=== PATIENT | female | born 1960 | race Hispanic/Latino ===

== ENCOUNTER 2017-09-28 18:38 | Emergency (ER) | payer OTHER | END 2017-09-28 20:10 | disposition home or self-care (01) | LOC: ERS 18:38 | DX: L03.114 Cellulitis of left upper limb (principal); E78.5 Hyperlipidemia, unspecified; E11.9 Type 2 diabetes mellitus without complications; E03.9 Hypothyroidism, unspecified; I10 Essential (primary) hypertension; F32.9 Major depressive disorder, single episode, unspecified | CPT/HCPCS: 99283 ==

== ENCOUNTER 2017-10-01 17:15 | Inpatient (IN) | payer OTHER ==
[~2017-10-01 17:15] MED LIST: ISOVUE-370 76%-LOCM 1 ML ONE
[2017-10-01] MEDS ORDERED: Adacel (T-DAP) 0.5 ML VIAL ONE (19:04)
[2017-10-01] MEDS ORDERED: Morphine 4 MG/ML VIAL ONE ×2 (19:04→22:48)
[2017-10-01 19:14] LABS: #Eosinphils 0.1 thou/uL (0.0-0.7); #Lymphocytes 2.2 thou/uL (1.20-3.40); #Monocytes 1.4 thou/uL (0.11-0.59); %Eosinophils 0.5 % (0.0-10.0); %Lymphocytes 11.6 % (21.0-51.0); %Monocytes 7.5 % (0.0-10.0); %Neutrophils 80.3 % (42.0-75.0); Hemoglobin 10.8 g/dL (12.0-16.0); Mean Corpuscular HGB CONC 35.4 g/dL (32.0-36.0); Mean Corpuscular Volume 90.4 fl (81.0-99.0); Mean Platelet Volume 8.7 fL (7.4-10.4); Platelet Count 287 thou/uL (130-400); RBC Distribution Width 10.8 % (11.5-14.5); Red Blood Cell (RBC) Count 3.37 mill/uL (4.20-5.40); White Blood Cell (WBC) Count 18.7 thou/uL (4.8-10.8)
[2017-10-01] MEDS ORDERED: Vancomycin HCl 1.5 GM in Sodium Chloride 0.9% 250 ML 300 ML IVPB SCH (19:15)
[2017-10-01] MEDS ORDERED: Cefepime 2 GM, Syringe 2.5 ML in Sodium Chloride 0.9% 10 ML SLOW IVP SCH (19:15)
[2017-10-01 19:35] LABS: Anion Gap 17 mmol/L (10-20); BUN (Urea Nitrogen) 15 mg/dL (9.8-20.1); Calc. Creatinine Clearance 0 mL/min (70-130); Calcium 9.5 mg/dL (7.8-10.44); Carbon Dioxide 20 mmol/L (22-29); Chloride 96 mmol/L (98-107); Estimated GFR-MDRD 40; Glucose 504 mg/dL (70-105); Potassium 4.6 mmol/L (3.5-5.1); Sodium 128 mmol/L (136-145)
--- NOTE | 2017-10-01 20:53 | CT ---
CT OF THE LEFT UPPER EXTREMITY WITH CONTRAST: 10/01/17 COMPARISON: None. HISTORY: Cellulitis. Patient administered insulin to her arm. To evaluate for deep abscess. Pain in the left a rm. TECHNIQUE: Multiple contiguous axial images were obtained in a CT of the left upper extremity with contrast. Sag ittal and coronal reformats were performed. FINDINGS: There is stranding in the subcutaneous fat of the outer aspect of the arm. No focal well circumscribe d fluid collection is seen. The stranding may extend down to the triceps muscle without focal fluid c ollection within t he triceps muscle. No air is seen within the soft tissues. No bony abnormality is seen. There may be small nonobstructing calcifications in the left kidney. IMPRESSION: 1. There are stranding changes in the arm without focal abscess identified. 2. Possible nonobstructing left renal calcifications. POS: SANTOS
[2017-10-01] MEDS ORDERED: Lidocaine 1% w/Epinephrine 1:100K 20 ML VIAL ONE (20:55)
[2017-10-01 21:07] LABS: Base Excess-Venous -1.5 mmol/L (0 (+/- 2.5)); Bicarbonate (HCO3v) 22.4 mmol/L (1.0-85.0); CO2 Tension (PvCO2) 34.6 mmHg (41.0-51.0); Calcium, Ionized 0.99 mmol/L (1.12-1.32); O2 Tension (PvO2) 38.4 mmHg (35.0-45.0); Potassium 4.4 mmol/L (3.4-4.7); T. Carbon Dioxide 23.5 mmol/L (1.0-85.0); vO2 Saturation-calc 74.4 % (94-98)
--- NOTE | 2017-10-01 22:55 | PDOC.FPRHP ---
- History of Present Illness Chief Complaint: Left arm pain secondary to infection History of Present Illness: This is a 57 yo F w/hx of DM2, HTN, HLD, hypothyroid here with complaint of R upper arm pain secondary to a previous cellulitis diagnosis. She states that she began to have pain and redness apprx 1 week ago. She was put on Bactrim and Keflex after being diagnosed w/cellulitis on 09/28. Yesterday night, she noticed a drainage from the center of the affected area and decided that the new drainage and lack of improvement warranted another evaluation. She denies fever/ chills, n/v, or any other new symptoms. Her major complaint is continued arm pain. - Allergies/Adverse Reactions Allergies Allergy/AdvReac Type Severity Reaction Status Date / Time No Known Drug Allergies Allergy Verified 11/10/15 13:12 - Home Medications Medication Instructions Recorded Confirmed Type Aspirin [Aspir-Low] 1 tab PO DAILY 10/01/17 10/02/17 History Atorvastatin Calcium [Lipitor] 40 mg PO DAILY 10/01/17 10/02/17 History Cephalexin [Keflex] 1 tab PO Q8HR 10/01/17 10/02/17 History Citalopram [CeleXA] 1 tab PO DAILY 10/01/17 10/02/17 History Insulin Glargine,Hum.Rec.Anlog 30 units SQ DAILY 10/01/17 10/02/17 History [Lantus] Levothyroxine Sodium 2 tab PO DAILY 10/01/17 10/02/17 History Sulfamethoxazole/Trimethoprim 1 tab PO BID 10/01/17 10/02/17 History [Bactrim DS] metFORMIN HCl [Metformin HCl] 1 tab PO BID 10/01/17 10/02/17 History traMADol HCl [Tramadol HCl] 1 tab PO Q6HR 10/01/17 10/02/17 History - History PMHx: DM2 HTN HLD Hypothyroid GERD PSHx: Hysterectomy hemorrhoidectomy FHx: unk Social: Denies etoh, tobacco, drug use - Review of Systems General: denies: fever/chills, weight/appetite/sleep changes Eyes: denies: vision changes ENT: denies: nasal congestion Respiratory: denies: cough, congestion, shortness of breath Cardiovascular: denies: chest pain, palpitation, edema Gastrointestinal: denies: nausea, vomiting, diarrhea, abdominal pain Genitourinary: reports: polyuria Skin: reports: rashes, lesions (Complains of draining lesion in the center of an area of redness on posterior upper L arm) Musculoskeletal: reports: pain, tenderness (TTP over area of erythema), swelling Neurological: denies: numbness Psychological: denies: anxiety, depression - Vital signs BP: 130/83 HR: 82 RR: 20 Tmax: 98.8 Pox: 99% on RA Wt: 115 kg - Physical Exam Constitutional: NAD, awake, alert and oriented HEENT: normocephalic and atraumatic, PERRLA, EOMI, no scleral icterus Neck: supple, FROM, trachea midline Chest: no-tender to palpation Heart: RRR, normal S1/S2 Lungs: CTAB, no respiratory distress Abdomen: soft, non-tender, bowel sounds present Musculoskeletal: normal structure, normal tone Neurological: no focal deficit, CN II-XII intact -Skin: Area of erythema on posterior upper L arm outside of the previous marked area with central draining lesion. Heme/Lymphatic: no unusual bruising or bleeding Psychiatric: normal mood and affect, good judgment and insight FMR H&P: Results - Labs Result Diagrams: 10/02/17 01:31 10/02/17 01:32 Lab results: WBC 18.7 thou/uL (4.8-10.8) H 10/01/17 19:03 Hgb 10.8 g/dL (12.0-16.0) L 10/01/17 19:03 Hct 30.5 % (36.0-47.0) L 10/01/17 19:03 MCV 90.4 fl (81.0-99.0) 10/01/17 19:03 Plt Count 287 thou/uL (130-400) 10/01/17 19:03 Neutrophils % 80.3 % (42.0-75.0) H 10/01/17 19:03 VBG pCO2 34.6 mmHg (41.0-51.0) L 10/01/17 21:05 VBG pO2 38.4 mmHg (35.0-45.0) 10/01/17 21:05 Sodium 128 mmol/L (136-145) L 10/01/17 19:03 Potassium 4.6 mmol/L (3.5-5.1) 10/01/17 19:03 Chloride 96 mmol/L (98-107) L 10/01/17 19:03 Carbon Dioxide 20 mmol/L (22-29) L 10/01/17 19:03 BUN 15 mg/dL (9.8-20.1) 10/01/17 19:03 Creatinine 1.37 mg/dL (0.6-1.1) H 10/01/17 19:03 Glucose 504 mg/dL (70-105) H 10/01/17 19:03 Calcium 9.5 mg/dL (7.8-10.44) 10/01/17 19:03 - Radiology Interpretation Other Status: report reviewed by me (CT L arm - stranding without focal abscess) FMR H&P: A/P - Problem List (1) Cellulitis Current Visit: Yes Status: Acute Priority: High Code(s): L03.90 - CELLULITIS, UNSPECIFIED Qualifiers: Site of cellulitis: extremity Site of cellulitis of extremity: upper extremity Laterality: left Qualified Code(s): L03.114 - Cellulitis of left upper limb (2) Normocytic anemia Current Visit: Yes Status: Chronic Priority: Low Code(s): D64.9 - ANEMIA, UNSPECIFIED (3) DURAN (acute kidney injury) Current Visit: Yes Status: Acute Priority: Medium Code(s): N17.9 - ACUTE KIDNEY FAILURE, UNSPECIFIED (4) Hyponatremia Current Visit: Yes Status: Acute Priority: Low Code(s): E87.1 - HYPO- OSMOLALITY AND HYPONATREMIA (5) Diabetes mellitus type 2 Current Visit: Yes Status: Chronic Priority: Medium Code(s): E11.9 - TYPE 2 DIABETES MELLITUS WITHOUT COMPLICATIONS (6) Hyperlipidemia Current Visit: Yes Status: Chronic Priority: Low Code(s): E78.5 - HYPERLIPIDEMIA, UNSPECIFIED (7) Hypertension Current Visit: Yes Status: Chronic Priority: Medium Code(s): I10 - ESSENTIAL (PRIMARY) HYPERTENSION (8) Hypothyroidism Current Visit: Yes Status: Chronic Priority: Medium Code(s): E03.9 - HYPOTHYROIDISM, UNSPECIFIED - Plan Cellulitis - admit to medicine - continue Vanc and cefepime - wound cultures pending, adjust abx when results are available - repeat CBC/BMP in am - I&D to be performed in ED, consult wound care DURAN - likely secondary to dehydration from hyperglycemia - IVF, recheck BMP in am - work to control glucose with low carb diet and restart home meds Uncontrolled DM - restart home basal, add SSI. Pt should likely be on scheduled short acting. Will work to identify total insulin need and adjust home meds as indicated. - hyperglycemia likely contributing to outpt abx failure - low carb diet HTN - restart home meds, controlled Hypothyroid - restart home meds - TSH Anemia - stable, asymptomatic - Normal MCV. Order folate and iron studies to eval for mixed anemia GERD - continue home protonix HLD - Continue home statin Mild dehydration - likely source of DURAN. IVF as above PPx - lovenox and scd. Code full Diet low carb Dispo: Pt is stable. Will require a few days of IV abx until cultures result, then change abx as indicated. Likely LOS 48-72 hours FMR H&P: Upper Level - Pertinent history 57 y/o F w/ PMHx of uncontrolled IDDM (last A1c 09/04 >14), HTN, and HLD presents for evaluation of worsening right arm pain/swelling/redness. Pt was seen in the ER on 09/28 and dx w/ cellulitis. She was sent home w/ Bactrim and Keflex at this time which she reports taking. Margin of erythema was marked w/ a pen at this time and pt was instructed to return to the ER if the redness grew past the marked line. Pt reportedly first began having sxs approx. 1 week ago s/p injecting herself w/ her insulin. She denies any improvement s/p initiation of PO abx. States she developed a blister yesterday which popped w/ purulent fluid draining out of it. She states that the redness and pain grew past the margins of the chinik upon waking this AM prompting her ER visit tonight. Denies any F/C/N/V. Pt's BG reportedly usually running in the 300's w/ regard to her DM. - Pertinent findings CT-UE: No evidence of abscess WBC- 18.7 w/ 80% neutrophils BUN- 15 Cr - 1.37 (baseline 0.87) BP: 138/83 Pulse: 82 RR: 20 Tmax: 98.8 DegF O2Sat: 99% on RA Gen: Obese, NAD HEENT: MMM, PERRLA, EOMI Cards: RRR, no murmur Pulm: CTA-BL, no wheezes GI: soft, NTTP, BSx4 Ext: Moves all 4 equally Neuro; CN 2-12 intact b/l, no focal deficits Skin: 6x6 cm area of induration and erythema w/ central ulceration and active sero-purulent drainage noted on lateral aspect of the right upper extremity just prox. to the elbow. Noted to be extending past visibly marked margin from . TTP. No palpable fluctuance. - Plan Date/Time: 10/01/17 0829 Amarilis Rose. Pop Lazo MD, have evaluated this patient and agree with findings/plan as outlined by web design intern resident. Pertinent changes/additions are listed here. 57 y/o F w/: 1. Cellulitis w/ failed outpatient treatment - Leukocytosis in the setting of acute infection w/o evidence of sepsis - Will martinez culture if patient becomes febrile - WCx obtained in ER, pending micro/sensitivities - Will cont. pt on vanc and cefepime started in the ER and narrow coverage pending Cx - IVF LR @ 175 mL/Hr w/ Strict I/O's - Consult Wound Care 2. DURAN - <20 ratio, likely w/ some CKD in the setting of uncontrolled DM - Will give IVF and cont. to monitor w/ daily BMPs - Last cr 0.87 from approx. 1 year ago 3. Moderate dehydration - Pt w/ significantly elevated BG level and BMP suggestive of dehydration - Will give IVF w/ PO intake and monitor w/ strict I/O's 4. Uncontrolled IDDM - Pt taking 30U of levemir BID - Will cont. this regimen and place on moderate SSI w/ adjustments to long acting pending SSI usage - Will attempt to maintain relatively strict glycemic control in the setting of infection as long as patient remians asymptomatic - A1c in clinic from last month >14.0 on insulin and metformin - CC diet. Diabetes education - This will need to be continued in the outpatient setting 5. HTN - Will cont. w/ home BP regimen w/ PRN's as needed 6. HLD - Will cont. w/ statin medication 7. Hypothyroidism - Check TSH - Cont. w/ home medication w/ adjustments as necessary 8. GERD - Cont. w/ protonix - Pt would likely benefit from further work-up for this w/ EGD in the outpatient setting 9. Normocytic anemia - Will check B12 and tagged RBC folate along w/ iron studies to evaluate - Last Hgb 13 from review of records - Possibility of dual deficiency and patient at high risk for B12 deficiency in the setting of diabetes and iron deficiency being a female DVT PPx: Lovenox GI PPx: None Activity: Ad zenon Diet: CC/HH Eval PT/OT Code status: Full Code Attending Addendum - Attending Addendum Date/Time: 10/02/17 [id number] I personally evaluated the patient and discussed the management with Dr. Clarke. I agree with the History, Examination, Assessment and Plan documented above with any addition or exceptions noted below. Her Left arm is the involved side. When corrected for hyperglycemia her serum sodium is normal. Change hyponatremia to Pseudohyponatremia. Mrs. Alegria is a 57 y/o Nepali speaking with a PMHx of DM2, HTN, HLD, hypothyroidism who presented to the E.D. with a complaint of L upper arm pain secondary to previously diagnosed cellulitis for one week and treated with Bactrim and Keflex on 09/28. She noticed a drainage from the center of the affected area and decided that the with lack of improvement she warranted repeat evaluation. She denied fever/chills, n/v, or any other new symptoms. V/S: Tmax 98.3, P72, R16, SaO2 97% RA, 121/72. Wt 114.8 Kg, BMI 42.2. Alert obese LAF in NAD. Heent: Wnl Neck: supple no adenopathy Lungs: CTA Cor: RRR, no murmur Abd: soft, protruberant, no tenderness, masses or organomegaly. Ext: Tender indurated area of Left lateral posterior upper arm est. 12 cm in diameter post I&D in E.D. with gauze packing being removed/changed by wound care nurse draining yellow pus. Surrounding area of erythema has regressed from skin marking previously placed. Otherwise No C/E/C/P. A: Abscess with Cellulitis of left upper arm post I&D, Improved DM2, HTN, HLD, Pseudohyponatremia, Hypothyroidism. P: Continue Vanc and Cefiipime. Await C&S for antibiotic sensitivity and coverage change. Tramadol for pain, Start Morphine IV prior to wound care, Continue sliding scale insulin and metformin. Scott
[2017-10-01] MEDS ORDERED: Dextrose 50% Abboject 50 ML SYRINGE SLOW IVP PRN (22:57)
[2017-10-01] MEDS ORDERED: HumaLOG 300 UNITS/3 ML VIAL SC PRN (22:57)
[2017-10-01] MEDS ORDERED: Dextrose 5% in Water 1,000 ML IV PRN (22:57)
[2017-10-01] MEDS: Sodium Chloride 0.9% 1,000 ML IV SCH (23:34)
[2017-10-01 23:45] VITALS: BMI 42.1
[2017-10-02 01:51] LABS: Reticulocyte Count 1.6 % (0.5-1.5)
[2017-10-02 02:06] LABS: Band 1 % (5-11); Eosinophils 3 % (0-10); Hemoglobin 10.8 g/dL (12.0-16.0); Lymphocytes 13 % (21-51); MDiff Complete? YES; Mean Corpuscular HGB CONC 35.1 g/dL (32.0-36.0); Mean Corpuscular Hemoglobin 31.6 pg (27.0-31.0); Mean Corpuscular Volume 90.1 fl (81.0-99.0); Mean Platelet Volume 8.6 fL (7.4-10.4); Monocytes 10 % (0-10); Neutrophil 73 % (42-75); PLT Morphology Comment Appears Adequate; Platelet Count 258 thou/uL (130-400); RBC Distribution Width 10.8 % (11.5-14.5); Red Blood Cell (RBC) Count 3.41 mill/uL (4.20-5.40)
[2017-10-02 02:07] LABS: Iron 21 ug/dL (50-170); Iron Binding Capacity, Total 181 mcg/dL (265-497)
[2017-10-02 02:16] LABS: Ferritin 407.11 ng/mL (10-291); Thyroid Stimulating Hormone 5.7449 uIU/mL (0.35-4.94)
[2017-10-02 02:22] LABS: Anion Gap 8 mmol/L (10-20); BUN (Urea Nitrogen) 14 mg/dL (9.8-20.1); Calc. Creatinine Clearance 105 mL/min (70-130); Calcium 8.6 mg/dL (7.8-10.44); Carbon Dioxide 25 mmol/L (22-29); Chloride 101 mmol/L (98-107); Estimated GFR-MDRD 53; Glucose 389 mg/dL (70-105); Potassium 3.9 mmol/L (3.5-5.1); Sodium 130 mmol/L (136-145)
[2017-10-02] MEDS: Sodium Chloride 0.9% 1,000 ML IV SCH ×4 (05:02→22:06)
[2017-10-02] MEDS: traMADol HCl 50 MG TAB PO SCH ×3 (05:47→17:29)
[2017-10-02] MEDS: HumaLOG 300 UNITS/3 ML VIAL SC PRN ×2 (05:48→11:56)
--- NOTE | 2017-10-02 06:34 | PDOC.FM ---
- Subjective Subjective: Patient doing well this AM. No significant overnight events. Pain well controlled with current pain medication regimen. Patient has no concerns. - Objective MAR Reviewed: Yes Vital Signs & Weight: Vital Signs (12 hours) Temp Pulse Resp BP BP Pulse Ox 10/02/17 03:45 98.3 F 75 12 122/68 94 L 10/02/17 00:17 97.7 F 85 18 98 10/01/17 23:45 97.7 F 85 18 165/95 H 98 Weight Weight 114.895 kg I&O: 09/30/17 10/01/17 10/02/17 06:59 06:59 06:59 Intake Total 1850 Balance 1850 Result Diagrams: 10/02/17 01:31 10/02/17 01:32 EKG Reviewed by me: No Radiology Reviewed by me: No <Loly Brian - Last Filed: 10/02/17 07:40> - Objective Vital Signs & Weight: Vital Signs (12 hours) Temp Pulse Resp BP Pulse Ox 10/02/17 11:00 98.2 F 71 18 105/55 L 91 L 10/02/17 08:00 98.2 F 72 16 121/72 97 10/02/17 03:45 98.3 F 75 12 122/68 94 L Weight Weight 114.895 kg I&O: 10/01/17 10/02/17 10/03/17 06:59 06:59 06:59 Intake Total 1850 Balance 1850 Result Diagrams: 10/02/17 01:31 10/02/17 01:32 <Krunal Schwarz - Last Filed: 10/02/17 12:23> Phys Exam - Physical Examination Constitutional: NAD resting on exam HEENT: moist MMs Neck: supple Respiratory: clear to auscultation bilateral Cardiovascular: RRR, no significant murmur Gastrointestinal: soft, non-tender, positive bowel sounds trace edema Neurological: non-focal, moves all 4 limbs Deviation from normal: Left posteior/lateral upper extremity wound currently covered. -: Drainage through current bandage. Area of cellulitis regressing. <Loly Brian - Last Filed: 10/02/17 07:40> Dx/Plan (1) Cellulitis Code(s): L03.90 - CELLULITIS, UNSPECIFIED Status: Acute QualifierTitle: Site of cellulitis: extremity Site of cellulitis of extremity: upper extremity Laterality: left Qualified Code(s): L03.114 - Cellulitis of left upper limb (2) Diabetes mellitus type 2 Code(s): E11.9 - TYPE 2 DIABETES MELLITUS WITHOUT COMPLICATIONS Status: Chronic (3) Hyperlipidemia Code(s): E78.5 - HYPERLIPIDEMIA, UNSPECIFIED Status: Chronic (4) Hypertension Code(s): I10 - ESSENTIAL (PRIMARY) HYPERTENSION Status: Chronic (5) Hypothyroidism Code(s): E03.9 - HYPOTHYROIDISM, UNSPECIFIED Status: Chronic (6) Normocytic anemia Code(s): D64.9 - ANEMIA, UNSPECIFIED Status: Chronic - Plan Plan: 1. Cellulitis w/ failed outpatient treatment - Leukocytosis in the setting of acute infection w/o evidence of sepsis; downtrending this AM - Will martinez culture if patient becomes febrile - WCx obtained in ER, pending micro/sensitivities - Will cont. pt on vanc and cefepime started in the ER and narrow coverage pending Cx - IVF LR @ 150 mL/Hr w/ Strict I/O's - Consult Wound Care - Failed outpatient treatment 2. DURAN, resolved - <20 ratio, likely w/ some CKD in the setting of uncontrolled DM - Will give IVF and cont. to monitor w/ daily BMPs - Last cr 0.87 from approx. 1 year ago 3. Moderate dehydration - Pt w/ significantly elevated BG level and BMP suggestive of dehydration - Will give IVF w/ PO intake and monitor w/ strict I/O's 4. Uncontrolled IDDM - Pt taking 30U of levemir BID - Will cont. this regimen and place on moderate SSI w/ adjustments to long acting pending SSI usage - Will attempt to maintain relatively strict glycemic control in the setting of infection as long as patient remains asymptomatic - A1c in clinic from last month >14.0 on insulin and metformin - CC diet. Diabetes education - Consider titrating insulin depending on SSI needs 5. HTN - Will cont. w/ home BP regimen w/ PRN's as needed 6. HLD - Will cont. w/ statin medication 7. Hypothyroidism - TSH mildly elevated - Free T4 pending - Cont. w/ home medication w/ adjustments as necessary 8. GERD - Cont. w/ protonix - Pt would likely benefit from further work-up for this w/ EGD in the outpatient setting 9. Normocytic anemia - B12 nml, RBC folate pending, Iron low, TIBC low, Ferritin high (likely mixed iron deficiency and ACD) - Last Hgb 13 from review of records - BM responsive - May benefit from iron supplementation DVT PPx: Lovenox GI PPx: None Activity: Ad zenon Diet: CC/HH Eval PT/OT Code status: Full Code Dispo: Will continue current treatment for cellulitis and adjust antibiotic regimen depending on sensitivities. Anticipate discharge home within 24-48 hours. <Loly Brian - Last Filed: 10/02/17 07:40> (1) Cellulitis Code(s): L03.90 - CELLULITIS, UNSPECIFIED Status: Acute Qualifiers: Site of cellulitis: extremity Site of cellulitis of extremity: upper extremity Laterality: left Qualified Code(s): L03.114 - Cellulitis of left upper limb (2) Normocytic anemia Code(s): D64.9 - ANEMIA, UNSPECIFIED Status: Chronic (3) DURAN (acute kidney injury) Code(s): N17.9 - ACUTE KIDNEY FAILURE, UNSPECIFIED Status: Acute (4) Hyponatremia Code(s): E87.1 - HYPO-OSMOLALITY AND HYPONATREMIA Status: Acute (5) Diabetes mellitus type 2 Code(s): E11.9 - TYPE 2 DIABETES MELLITUS WITHOUT COMPLICATIONS Status: Chronic (6) Hyperlipidemia Code(s): E78.5 - HYPERLIPIDEMIA, UNSPECIFIED Status: Chronic (7) Hypertension Code(s): I10 - ESSENTIAL (PRIMARY) HYPERTENSION Status: Chronic (8) Hypothyroidism Code(s): E03.9 - HYPOTHYROIDISM, UNSPECIFIED Status: Chronic <Krunal Schwarz - Last Filed: 10/02/17 12:23> Attending Addendum - Attending Addendum Date/Time: 10/02/17 1221 I personally evaluated the patient and discussed the management with Dr. Brian. I agree with the History, Examination, Assessment and Plan documented above with any addition or exceptions noted below. Please see my faculty attending addendum to the H&P done by Dr. Clarke. Abcess /Cellulitis of Left Upper Arm post I&D by Emergency Dept. Per pharmacy recommendation Vancomycin dose changed to 1.25 gram IV Q 12 hr. MD Scott <Krunal Schwarz - Last Filed: 10/02/17 12:23>
[2017-10-02] MEDS ORDERED: Cefepime 2 GM in Sodium Chloride 0.9% 100 ML IVPB SCH (08:00)
[2017-10-02] MEDS: Aspirin 81 mg Enteric Coated Tablet PO SCH (08:43)
[2017-10-02] MEDS: Enoxaparin Sodium 40 MG/0.4 ML SYRINGE SC SCH (08:43)
[2017-10-02] MEDS: metFORMIN 500 MG TAB PO SCH ×2 (08:43→17:29)
[2017-10-02] MEDS: Citalopram 20 MG TAB PO SCH (08:43)
[2017-10-02] MEDS: Atorvastatin Calcium 40 MG TAB PO SCH (08:44)
[2017-10-02] MEDS: Levothyroxine Sodium 125 MCG TAB PO SCH (08:44)
[2017-10-02] MEDS: Cefepime 2 GM, Syringe 2.5 ML in Sodium Chloride 0.9% 10 ML SLOW IVP SCH ×2 (08:44→20:33)
[2017-10-02] MEDS: Acetaminophen 325 MG TAB PO PRN (08:48)
[2017-10-02] MEDS ORDERED: Insulin Detemir 100 UNITS/ML 30 UNITS in Admixture Fee 1 EACH SC SCH ×2 (09:00→21:00)
[2017-10-02] MEDS ORDERED: Vancomycin HCl 1.75 GM in Sodium Chloride 0.9% 500 ML IVPB SCH ×3 (12:08→21:00)
[2017-10-02] MEDS: Vancomycin HCl 1.25 GM in Sodium Chloride 0.9% 250 ML 250 ML IVPB SCH (15:02)
[2017-10-03] MEDS: traMADol HCl 50 MG TAB PO SCH ×2 (00:46→05:37)
[2017-10-03] MEDS: Vancomycin HCl 1.25 GM in Sodium Chloride 0.9% 250 ML 250 ML IVPB SCH (00:54)
[2017-10-03] MEDS: Sodium Chloride 0.9% 1,000 ML IV SCH (04:13)
[2017-10-03 05:52] LABS: Anion Gap 10 mmol/L (10-20); BUN (Urea Nitrogen) 11 mg/dL (9.8-20.1); Calc. Creatinine Clearance 146 mL/min (70-130); Calcium 8.4 mg/dL (7.8-10.44); Carbon Dioxide 21 mmol/L (22-29); Chloride 108 mmol/L (98-107); Estimated GFR-MDRD 78; Glucose 107 mg/dL (70-105); Potassium 3.7 mmol/L (3.5-5.1); Sodium 135 mmol/L (136-145)
--- NOTE | 2017-10-03 06:14 | PDOC.FM ---
- Subjective Subjective: Patient doing well this AM. No significant overnight events. Patient's pain fairly well controlled. No fevers overnight. No chest pain or shortness of breath. - Objective MAR Reviewed: Yes Vital Signs & Weight: Vital Signs (12 hours) Temp Pulse Resp BP Pulse Ox 10/02/17 22:07 166/88 H 10/02/17 20:00 97.6 F 76 20 177/100 H 97 Weight Weight 114.895 kg I&O: 10/01/17 10/02/17 10/03/17 06:59 06:59 06:59 Intake Total 1850 3190 Balance 1850 3190 Result Diagrams: 10/02/17 01:31 10/03/17 04:45 EKG Reviewed by me: No Radiology Reviewed by me: Yes Phys Exam - Physical Examination Constitutional: NAD HEENT: moist MMs Neck: supple Respiratory: no wheezing Cardiovascular: RRR, no significant murmur Gastrointestinal: soft, positive bowel sounds Musculoskeletal: pulses present trace Neurological: non-focal, moves all 4 limbs Psychiatric: normal affect Deviation from normal: No surrounding cellulitis past point of current bandage on RUE. -: Abscess currently covered. Drainage evident through bandage. Dx/Plan (1) Abscess Code(s): L02.91 - CUTANEOUS ABSCESS, UNSPECIFIED Status: Acute (2) Cellulitis Code(s): L03.90 - CELLULITIS, UNSPECIFIED Status: Acute Qualifiers: Site of cellulitis: extremity Site of cellulitis of extremity: upper extremity Laterality: left Qualified Code(s): L03.114 - Cellulitis of left upper limb (3) Diabetes mellitus type 2 Code(s): E11.9 - TYPE 2 DIABETES MELLITUS WITHOUT COMPLICATIONS Status: Chronic (4) Hyperlipidemia Code(s): E78.5 - HYPERLIPIDEMIA, UNSPECIFIED Status: Chronic (5) Hypertension Code(s): I10 - ESSENTIAL (PRIMARY) HYPERTENSION Status: Chronic (6) Hypothyroidism Code(s): E03.9 - HYPOTHYROIDISM, UNSPECIFIED Status: Chronic (7) Normocytic anemia Code(s): D64.9 - ANEMIA, UNSPECIFIED Status: Chronic - Plan Plan: 1. RUE abscess s/p I&D with surrounding cellulitis - Leukocytosis in the setting of acute infection w/o evidence of sepsis; downtrending - Will martinez culture if patient becomes febrile - WCx obtained in ER; no growth to date - May consider transitioning to oral abx and de-escalating abx as patient is clinically improving - Strict I&O's - Wound care consulted; appreciate recs - Failed outpatient treatment - Improving based on wound care photos 2. DURAN, resolved - <20 ratio, likely w/ some CKD in the setting of uncontrolled DM - Cr 0.76 this AM - Last cr 0.87 from approx. 1 year ago 3. Moderate dehydration, resolved - Pt w/ significantly elevated BG level and BMP suggestive of dehydration - d/c'd fluids this AM 4. Uncontrolled IDDM - Pt taking 30U of levemir BID - Will cont. this regimen and place on moderate SSI w/ adjustments to long acting pending SSI usage - Will attempt to maintain relatively strict glycemic control in the setting of infection as long as patient remains asymptomatic - A1c in clinic from last month >14.0 on insulin and metformin - CC diet. Diabetes education - Increase basil insulin dose; required 16 units SSI yesterday 5. HTN - Will cont. w/ home BP regimen w/ PRN's as needed 6. HLD - Will cont. w/ statin medication 7. Hypothyroidism - TSH mildly elevated - Free T4 wnl - Cont. w/ home medication 8. GERD - Cont. w/ protonix - Pt would likely benefit from further work-up for this w/ EGD in the outpatient setting 9. Normocytic anemia - B12 nml, RBC folate pending, Iron low, TIBC low, Ferritin high (likely mixed iron deficiency and ACD) - Last Hgb 13 from review of records - BM responsive - May benefit from iron supplementation DVT PPx: Lovenox GI PPx: None Activity: Ad zenon Diet: CC/HH Eval PT/OT Code status: Full Code Dispo: Will continue current treatment for cellulitis and adjust antibiotic regimen depending on sensitivities. Anticipate discharge home within 24-48 hours.
[2017-10-03] MEDS: metFORMIN 500 MG TAB PO SCH (08:05)
[2017-10-03] MEDS: Aspirin 81 mg Enteric Coated Tablet PO SCH (08:05)
[2017-10-03] MEDS: Levothyroxine Sodium 125 MCG TAB PO SCH (08:06)
[2017-10-03] MEDS: Atorvastatin Calcium 40 MG TAB PO SCH (08:07)
[2017-10-03] MEDS: Citalopram 20 MG TAB PO SCH (08:07)
[2017-10-03] MEDS: Enoxaparin Sodium 40 MG/0.4 ML SYRINGE SC SCH (08:09)
[2017-10-03 08:52] VITALS: TEMP 98
[2017-10-03] MEDS ORDERED: Insulin Detemir 100 UNITS/ML 35 UNITS in Admixture Fee 1 EACH SC SCH ×2 (09:00→21:00)
[2017-10-03] MEDS ORDERED: Lisinopril 20 MG TAB PO SCH (09:00)
[2017-10-03] MEDS: Cefepime 2 GM, Syringe 2.5 ML in Sodium Chloride 0.9% 10 ML SLOW IVP SCH (09:30)
[2017-10-03 10:18] VITALS: BP 158/87
[2017-10-03] MEDS: Acetaminophen 325 MG TAB PO PRN (10:34)
--- NOTE | 2017-10-03 12:14 | ADD-PRG ---
This is an addendum to the note of Dr. Loly Brian. Ms. Alegria was admitted with cellulitis of her left upper extremity. She is a poorly controlled ty pe 2 diabetic. The wound was I&D'd and she is much improved. She can be discharged later today for followup wound care at home. She will need to have tighter control of her diabetes in the future.
[2017-10-03] MEDS ORDERED: Clindamycin 150 MG CAP PO SCH (14:00)
[2017-10-03 18:10] LABS: Folate,Hemolysate 373.5 ng/mL (Not Estab.); Hematocrit 30.8 % (34.0-46.6); RBC Folate Test Component 1213 ng/mL (>498)
--- NOTE | 2017-10-15 22:09 | DIS-2 ---
DATE OF ADMISSION: 10/01/2017 DATE OF DISCHARGE: 10/03/2017 ADMITTING ATTENDING: Jinny Schmitt M.D. DISCHARGE ATTENDING: Narinder Recio MD RESIDENT: Loly Brian DO CONSULTS: Wound Care. PROCEDURES: Upper extremity CT, there are standing changes in the arm without focal abscess identified. Possible nonobstructing left renal calcifications. PRIMARY DIAGNOSES: 1. Abscess of the left upper extremity with surrounding cellulitis. 2. Acute kidney injury. 3. Uncontrolled diabetes mellitus type 2. SECONDARY DIAGNOSES: 1. Hypertension. 2. Hypothyroidism. 3. Normocytic anemia. 4. Gastroesophageal reflux disease. 5. Hyperlipidemia. DISCHARGE MEDICATIONS: 1. Clindamycin 300 mg oral every 6 hours for a total of 6 days. 2. Lisinopril 40 mg oral daily. 3. Atorvastatin calcium 40 mg oral daily. 4. Tramadol 50 mg tablet, 1 tablet oral every 6 hours as needed for pain. 5. Metformin 1000 mg oral twice daily. 6. Levothyroxine 250 mcg oral daily. 7. Citalopram 20 mg oral daily. 8. Aspirin 81 mg oral daily. 9. Lantus 40 units subcutaneously daily. DISCONTINUED MEDICATION: 1. Bactrim-DS 1 tablet oral twice daily was discontinued. 2. Cephalexin 1 tablet oral every 8 hours was discontinued. 3. Of note, insulin glargine was changed from 30 units subcutaneously daily to 40 units subcutaneously daily for better glucose control. HISTORY OF PRESENT ILLNESS AND HOSPITAL COURSE: This is a 57-year-old female with a history of uncontrolled diabetes mellitus type 2, hypertension, hyperlipidemia and hypothyroidism, who presents with a complaint of left upper arm pain secondary to previous cellulitis diagnosis. Pain and redness began approximately one week prior to admission. She was put on Bactrim and Keflex after being diagnosed with cellulitis on 09/28/2017, but the night prior to admission, she did notice some drainage from the center of the affected area and decided that the new drainage and lack of improvement warranted further evaluation. The patient denies any fever, chills, nausea, vomiting or new symptoms. Her major complaint is continued pain. A CT scan of the arm was performed, which did not show any abscess formation; however, an I&D was performed down in the ER and a large amount of purulent drainage was expressed. The wound was packed with iodoform gauze. The patient was started on vancomycin and cefepime in the Emergency Department. The patient remained stable throughout the course of her hospital stay. Wound Care did come and evaluate the patient on several occasions, have packing changed. The wound did improve drastically after the incision and drainage. Cultures were obtained; however, since the patient was already taking antibiotics prior to admission, cultures were sterile. The patient was taken off of vancomycin and cefepime and transitioned to oral antibiotics to include clindamycin for further treatment of left upper extremity abscess and surrounding cellulitis. She is to continue this for an additional 6 days as she has already been on vancomycin and cefepime for a total of 2 days at this point. The patient was advised to follow up closely with her primary care physician and to have the wound further evaluated as an outpatient. Wound Care did come up and teach her granddaughter how to change the packing and dress the wound. Her insulin was also adjusted during this hospitalization to account for her elevated glucose, likely contributing to abscess formation. It is speculated that the patient was trying to inject herself in the left arm with insulin, whereby she developed this abscess and cellulitis. DISPOSITION: Stable. DISCHARGE INSTRUCTIONS: 1. Location: Home. 2. Activity: As tolerated. 3. Diet: Consistent carb, heart healthy. 4. Followup: The patient to follow up with Dr. Silva, [facility] within 3 days of discharge from the hospital to have wounds further evaluated and to have packing changed as necessary. The patient was counseled thoroughly on how to manage her wound and Wound Care did come up and teach the patient and her granddaughter how to do this from home. The patient was in understanding and agreement with the plan. LUTHER
== END 2017-10-03 13:30 | disposition home or self-care (01) | DRG 603 ==
LOC: ERS 17:15 → T4-B 22:05
PROVIDERS: ADMIT Family Medicine; ATTEND Family Medicine
DX: L03.114 Cellulitis of left upper limb (principal); N17.9 Acute kidney failure, unspecified; E11.22 Type 2 diabetes mellitus with diabetic chronic kidney disease; E11.65 Type 2 diabetes mellitus with hyperglycemia; E87.1 Hypo-osmolality and hyponatremia; E78.5 Hyperlipidemia, unspecified; E03.9 Hypothyroidism, unspecified; D64.9 Anemia, unspecified; K21.9 Gastro-esophageal reflux disease without esophagitis; I12.9 Hypertensive chronic kidney disease with stage 1 through stage 4 chronic kidney disease, or unspecified chronic kidney disease; N18.9 Chronic kidney disease, unspecified; E86.0 Dehydration; E66.9 Obesity, unspecified; Z79.4 Long term (current) use of insulin; Z79.84 Long term (current) use of oral hypoglycemic drugs; Z79.899 Other long term (current) drug therapy; Z90.710 Acquired absence of both cervix and uterus
CPT/HCPCS: 10060; 36415; 36416; 80048; 82010; 82330; 82607; 82728; 82747; 82803; 83540; 83550; 84439; 84443; 85025; 85046; 85060; 87040; 87070; 87205; 90471; 90715; 96365; 96366; 96375; G8978-GP-CI; G8979-GP-CI; G8980-GP-CI; J0692; J1650; J1815; J2001; J2270; J3370; J7050

== ENCOUNTER 2017-12-24 23:33 | Observation (INO) | payer OTHER, SELFPAY ==
--- NOTE | 2017-12-24 23:54 | RAD ---
SINGLE VIEW OF THE CHEST: 12/24/17 COMPARISON: 10/08/15 HISTORY: Dizziness and weakness. Elevated blood glucose. FINDINGS: Single view of the chest shows a normal sized cardiomediastinal silhouette. There is no evidence of c onsolidation, mass, or pleural effusion. The bones are unremarkable. IMPRESSION: No evidence of acute cardiopulmonary disease. POS: [facility]
[2017-12-24 23:56] LABS: #Eosinphils 0.1 thou/uL (0.0-0.7); #Lymphocytes 2.1 thou/uL (1.20-3.40); #Monocytes 0.5 thou/uL (0.11-0.59); #Neutrophils 4.3 thou/uL (1.40-6.50); %Basophils 0.5 % (0.0-1.0); %Eosinophils 1.5 % (0.0-10.0); %Lymphocytes 29.4 % (21.0-51.0); %Monocytes 7.5 % (0.0-10.0); %Neutrophils 61.2 % (42.0-75.0); Hemoglobin 13.8 g/dL (12.0-16.0); Mean Corpuscular HGB CONC 34.7 g/dL (32.0-36.0); Mean Corpuscular Hemoglobin 31.5 pg (27.0-31.0); Mean Corpuscular Volume 90.8 fL (78.0-98.0); Platelet Count 214 thou/uL (130-400); RBC Distribution Width 11.8 % (11.5-14.5); Red Blood Cell (RBC) Count 4.39 mill/uL (4.20-5.40); White Blood Cell (WBC) Count 7.1 thou/uL (4.8-10.8)
[2017-12-25] MEDS ORDERED: Ondansetron ODT 8 MG TAB ONE (00:12)
[2017-12-25] MEDS ORDERED: Insulin Regular 300 UNITS/3 ML VIAL ONE (00:12)
[2017-12-25 00:17] LABS: ALT (SGPT) 16 U/L (8-55); AST (SGOT) 16 U/L (5-34); Albumin 4.3 g/dL (3.5-5.0); Alkaline Phosphatase 130 U/L (40-150); Anion Gap 16 mmol/L (10-20); BUN (Urea Nitrogen) 17 mg/dL (9.8-20.1); Bilirubin, Total 0.9 mg/dL (0.2-1.2); Calc. Creatinine Clearance 0 mL/min (70-130); Calcium 10.2 mg/dL (7.8-10.44); Carbon Dioxide 23 mmol/L (22-29); Chloride 96 mmol/L (98-107); Estimated GFR-MDRD 29; Globulin 3.7 g/dL (2.4-3.5); Lipase 45 U/L (8-78); Magnesium 2.1 mg/dL (1.6-2.6); Phosphorus 2.5 mg/dL (2.3-4.7); Potassium 4.2 mmol/L (3.5-5.1); Sodium 131 mmol/L (136-145)
[2017-12-25 00:19] LABS: Glucose 616 mg/dL (70-105)
[2017-12-25 00:21] LABS: CKMB 1.2 ng/mL (0-6.6); Troponin I Less than 0.010 ng/mL (< 0.028)
[2017-12-25 00:26] LABS: Hemoglobin A1c 14.2 % (4.0-6.0)
[2017-12-25 01:00] LABS: Bilirubin Negative (Negative); Blood, Urine Negative (Negative); Clarity CLEAR (Clear); Glucose, Urine (Dipstick) >=1000 mg/dL (Negative); Leukocyte Small (Negative); Nitrite Negative (Negative); Protein, Urine (Dipstick) Negative (Neg-Trace); Specific Gravity, Urine 1.028 (1.002-1.036); Urobilinogen 0.2 mg/dL (0.2-1.0); pH, Urine 5.5 (5.0-9.0)
[2017-12-25 01:03] LABS: Bacteria/HPF Rare-Few HPF (None Seen); Hyaline Casts/LPF 0-3 HYALINE CAST LPF (0-3 Hyaline); Pathc Cast-AUWi Flag 0.29 (0-2.49); RBC/HPF 0-3 HPF (0-3); Squamous Epithelial 0-3 HPF (0-3)
[2017-12-25] MEDS ORDERED: cefTRIAXone\\ROCEPHIN 1 GM VIAL ONE (01:12)
[2017-12-25 01:24] LABS: Base Excess-Venous 1.1 mmol/L (0 (+/- 2.5)); Bicarbonate (HCO3v) 25.8 mmol/L (1.0-85.0); Calcium, Ionized 1.13 mmol/L (1.12-1.32); Hemoglobin - Calc 13.5 g/dL (12.0-18.0); O2 Tension (PvO2) 65.6 mmHg (35.0-45.0); Potassium 3.8 mmol/L (3.4-4.7); pH (Venous) 7.417 (7.35-7.45); vO2 Saturation-calc 92.9 % (94-98)
[2017-12-25 02:23] LABS: Base Excess-Venous 1.1 mmol/L (0 (+/- 2.5)); Bicarbonate (HCO3v) 25.5 mmol/L (1.0-85.0); CO2 Tension (PvCO2) 38.8 mmHg (41.0-51.0); Calcium, Ionized 1.13 mmol/L (1.12-1.32); Hemoglobin - Calc 13.5 g/dL (12.0-18.0); Lactate 3.01 mmol/L (0.50-2.20); O2 Tension (PvO2) 65.1 mmHg (35.0-45.0); Potassium 3.7 mmol/L (3.4-4.7); T. Carbon Dioxide 26.6 mmol/L (1.0-85.0); pH (Venous) 7.425 (7.35-7.45); vO2 Saturation-calc 92.9 % (94-98)
--- NOTE | 2017-12-25 03:40 | PDOC.FPRHP ---
- History of Present Illness Chief Complaint: Hyperglycemia History of Present Illness: Ms. Alegria, a 57 year old F with PMH of poorly controlled T2DM presents with 2 day history of hyperglycemia. She reports BG of 493 yesterday and 584 today. ED reports that her daughter gave extra doses of metformin yesterday to try to correct her hyperglycemia. Pt reports dizziness, nausea, and vomiting x3 yesterday. Due to nausea, she was unable to take any medications today, including her metformin. She reports a mild headache in the ED which she attributes to her blood sugar being lowered. She reports taking Lantus 30U in the morning and Novolog 5U in the evening, along with her metformin BID. ED Course: 2L fluids, ABG,basic labs, insulin, rocephin - Allergies/Adverse Reactions Allergies Allergy/AdvReac Type Severity Reaction Status Date / Time No Known Drug Allergies Allergy Verified 12/25/17 04:51 - Home Medications Medication Instructions Recorded Confirmed Type Atorvastatin Calcium [Lipitor] 40 mg PO DAILY 10/01/17 12/25/17 History Citalopram [CeleXA] 20 mg PO DAILY 10/01/17 12/25/17 History Levothyroxine Sodium 250 mcg PO DAILY 10/01/17 12/25/17 History metFORMIN HCl [Metformin HCl] 1,000 mg PO BID 10/01/17 12/25/17 History traMADol HCl [Tramadol HCl] 50 mg PO Q6HR PRN 10/01/17 12/25/17 History Lisinopril [Zestril] 40 mg PO DAILY tab 10/03/17 12/25/17 Rx HumaLOG [HumaLOG] 5 unit SC QPM-WM 12/25/17 12/25/17 History Insulin Glargine,Hum.Rec.Anlog 30 units SQ DAILY 12/25/17 12/25/17 History [Lantus] - History PMHx: T2DM, HTN, hypothyroid, HLD PSHx: Hysterectomy, hemorroid repair, eye surgery FHx:T2DM, HTN Social: . Denies tobacco, alcohol, drugs. - Review of Systems General: denies: fever/chills, fatigue Eyes: denies: eye pain, vision changes ENT: denies: nasal congestion, rhinorrhea Respiratory: denies: cough, shortness of breath Cardiovascular: denies: chest pain, palpitation Gastrointestinal: reports: nausea, vomiting, other (endorses polydypsia). denies: diarrhea, abdominal pain Genitourinary: reports: polyuria. denies: incontinence, dysuria Skin: denies: rashes, lesions Musculoskeletal: denies: pain, tenderness Neurological: reports: weakness. denies: numbness Psychological: reports: anxiety, depression - Vital signs BP: [154/108] HR: [78] RR: [18] Tmax: [98.4] Pox: [95]% on [RA] Wt: [111 kg] - Physical Exam Constitutional: NAD, awake, alert and oriented, other (obese) HEENT: normocephalic and atraumatic, PERRLA, EOMI, other (dry mucus membranes) Neck: supple Heart: RRR, normal S1/S2, pulses present Lungs: CTAB, no respiratory distress, no rales/rhonchi Abdomen: soft, non-tender, bowel sounds present Musculoskeletal: normal structure, normal tone Neurological: no focal deficit Skin: no rash/lesions, capillary refill <2 seconds Psychiatric: normal mood and affect, intact recent and remote memory FMR H&P: Results - Labs Result Diagrams: 12/24/17 23:47 12/25/17 08:21 Lab results: WBC 7.1 thou/uL (4.8-10.8) 12/24/17 23:47 Hgb 13.8 g/dL (12.0-16.0) 12/24/17 23:47 Hct 39.9 % (36.0-47.0) 12/24/17 23:47 MCV 90.8 fL (78.0-98.0) 12/24/17 23:47 Plt Count 214 thou/uL (130-400) 12/24/17 23:47 Neutrophils % 61.2 % (42.0-75.0) 12/24/17 23:47 VBG pCO2 38.8 mmHg (41.0-51.0) L 12/25/17 02:22 VBG pO2 65.1 mmHg (35.0-45.0) H 12/25/17 02:22 Sodium 131 mmol/L (136-145) L 12/24/17 23:47 Potassium 4.2 mmol/L (3.5-5.1) 12/24/17 23:47 Chloride 96 mmol/L (98-107) L 12/24/17 23:47 Carbon Dioxide 23 mmol/L (22-29) 12/24/17 23:47 BUN 17 mg/dL (9.8-20.1) 12/24/17 23:47 Creatinine 1.81 mg/dL (0.6-1.1) H 12/24/17 23:47 Glucose 616 mg/dL (70-105) H* 12/24/17 23:47 Calcium 10.2 mg/dL (7.8-10.44) 12/24/17 23:47 Total Bilirubin 0.9 mg/dL (0.2-1.2) 12/24/17 23:47 AST 16 U/L (5-34) 12/24/17 23:47 ALT 16 U/L (8-55) 12/24/17 23:47 Alkaline Phosphatase 130 U/L (40-150) 12/24/17 23:47 CK-MB (CK-2) 1.2 ng/mL (0-6.6) 12/24/17 23:47 Serum Total Protein 8.0 g/dL (6.0-8.3) 12/24/17 23:47 Albumin 4.3 g/dL (3.5-5.0) 12/24/17 23:47 Lipase 45 U/L (8-78) 12/24/17 23:47 Urine Ketones Negative mg/dL (Negative) 12/25/17 00:45 Urine Blood Negative (Negative) 12/25/17 00:45 Urine Nitrite Negative (Negative) 12/25/17 00:45 Ur Leukocyte Esterase Small (Negative) H 12/25/17 00:45 Urine RBC 0-3 HPF (0-3) 12/25/17 00:45 Urine WBC 11-20 HPF (0-3) H 12/25/17 00:45 Ur Squamous Epith Cells 0-3 HPF (0-3) 12/25/17 00:45 Urine Bacteria Rare-Few HPF (None Seen) 12/25/17 00:45 - EKG Interpretation EKG: NSR, QTc 481 FMR H&P: A/P - Problem List (1) Hyperglycemia due to type 2 diabetes mellitus Current Visit: Yes Status: Acute Code(s): E11.65 - TYPE 2 DIABETES MELLITUS WITH HYPERGLYCEMIA (2) DURAN (acute kidney injury) Current Visit: No Status: Acute Priority: Medium Code(s): N17.9 - ACUTE KIDNEY FAILURE, UNSPECIFIED (3) UTI (urinary tract infection) Current Visit: Yes Status: Acute (4) Diabetes mellitus type 2 Current Visit: No Status: Chronic Priority: Medium Code(s): E11.9 - TYPE 2 DIABETES MELLITUS WITHOUT COMPLICATIONS (5) Hyperlipidemia Current Visit: No Status: Chronic Priority: Low Code(s): E78.5 - HYPERLIPIDEMIA, UNSPECIFIED (6) Hypertension Current Visit: No Status: Chronic Priority: Medium Code(s): I10 - ESSENTIAL (PRIMARY) HYPERTENSION (7) Hypothyroidism Current Visit: No Status: Chronic Priority: Medium Code(s): E03.9 - HYPOTHYROIDISM, UNSPECIFIED - Plan 57 year old F with PMH uncontrolled T2DM presents to the ED with hyperglycemia, nausea found to have DURAN, UTI and profound hyperglycemia Hyperglycemia, in setting of poorly controlled T2DM - patient has very poor control and is approaching HHS, will admit to Observation for insulin titration and fluid administration - accuchecks q4h, moderate SSI - A1c on admission 14.2 - holding home metformin in acute setting of DURAN but will promptly resume - Patient reports taking insulin doses different than prescribed. Counseling on proper insulin administration (of both patient and family members) as well as how to manage hyperglycemia at home will be necessary prior to discharge - Lactic acid elevated with normal pH on VBG, will trend DURAN -Cr 1.8, was 0.76 in 09/2017 -s/p 2L NS in ED and will start IVNS @ 150 cc/hr -Will trend BMP UTI -rocephin (12/25) -urine culture pending Hyponatremia -131. when corrected for hyperglycemia, 139. -continue to monitor HTN -BP 150s systolic in ED -resume home lisinopril when DURAN improves, pending AM BMP Hypothyroid -check TSH, has been poorly controlled in past -continue home synthroid HLD - continue home atorvastatin Ppx: DVT- Lovenox, 30. No GI ppx indicated at this time. FMR H&P: Upper Level - Plan Date/Time: 12/25/17 0336 I, Jen Nickerson MD, PGY-3, have evaluated this patient and agree with findings/ plan as outlined by manager internet resident. Pertinent changes/additions have been discussed and are reflected above. Attending Addendum - Attending Addendum Date/Time: 12/25/17 [id number] I personally evaluated the patient and discussed the management with Dr. Ramos. I agree with the History, Examination, Assessment and Plan documented above with any addition or exceptions noted below. The patient presented to the er with hyperglycemia. She is an uncontrolled type 2 diabetic who is noncompliant with her insulin therapy, not taking meds as prescribed. BLood sugars have been over 400 for a few days. She denied dysuria, fever, chills and abdominal pain but endorsed polyuria. Pt was restarted on insulin and this morning blood sugars are in the 300's. Will continue sliding scale and continue to adjust basal insulin. We will not continue antibiotics as pt's only symptom is polyuria however this started when sugars went up. Urine culture is pending. Counseling on important of compliance with treatment regimen and diet.
[2017-12-25] MEDS ORDERED: Dextrose 5% in Water 1,000 ML IV PRN (04:25)
[2017-12-25] MEDS ORDERED: Acetaminophen 325 MG TAB PO PRN (04:25)
[2017-12-25] MEDS ORDERED: Dextrose 50% Abboject 50 ML SYRINGE SLOW IVP PRN (04:25)
[2017-12-25 04:56] VITALS: BMI 42.5
[2017-12-25 05:06] LABS: Creatinine, Urine 67.63 mg/dL (47-110)
[2017-12-25] MEDS: Sodium Chloride 0.9% 1,000 ML IV SCH ×2 (05:09→12:25)
[2017-12-25] MEDS: HumaLOG 300 UNITS/3 ML VIAL SC PRN ×4 (05:14→16:27)
--- NOTE | 2017-12-25 05:55 | PDOC.FM ---
Addendum entered and electronically signed by Meseret Tom MD 12/25/17 07:58 : Regarding the patient's presumed UTI. Decided to d/c abx as patient denies any urinary sxs and urine sample was not very impressive for UTI having only a few WBCs and small leuk. esterase. Patient likely has a simple pyuria which does not require any abx intervention. Urine Cx still pending to confirm. Original Note: - Subjective Subjective: Patient states she is feeling well. No nausea, vomiting or any reports of pain. Denies any dysuria or hematuria. - Objective Vital Signs & Weight: Vital Signs (12 hours) Temp Pulse Resp BP Pulse Ox 12/25/17 04:25 98.4 F 83 18 137/77 94 L Weight Weight 116.029 kg Result Diagrams: 12/24/17 23:47 12/24/17 23:47 Radiology Reviewed by me: Yes Radiology: No acute cardiopulmonary disease. <Meseret Tom - Last Filed: 12/25/17 07:41> - Objective Vital Signs & Weight: Vital Signs (12 hours) Temp Pulse Resp BP Pulse Ox 12/25/17 08:00 98.3 F 77 20 12/25/17 07:07 98.3 F 77 20 158/87 H 93 L 12/25/17 04:25 98.4 F 83 18 137/77 94 L 12/25/17 04:20 98.4 F 83 18 Weight Weight 116.029 kg I&O: 12/24/17 12/25/17 12/26/17 06:59 06:59 06:59 Intake Total 104 878 Output Total 300 Balance -196 878 Result Diagrams: 12/24/17 23:47 12/25/17 08:21 <Jinny Schmitt - Last Filed: 12/25/17 12:59> Phys Exam - Physical Examination Constitutional: NAD Neck: full ROM Respiratory: no wheezing, no rales, clear to auscultation bilateral Cardiovascular: RRR, no significant murmur Neurological: moves all 4 limbs Psychiatric: normal affect, A&O x 3 Skin: no rash <Meseret Tom - Last Filed: 12/25/17 07:41> Dx/Plan (1) Hyperglycemia due to type 2 diabetes mellitus Code(s): E11.65 - TYPE 2 DIABETES MELLITUS WITH HYPERGLYCEMIA Status: Acute (2) DURAN (acute kidney injury) Code(s): N17.9 - ACUTE KIDNEY FAILURE, UNSPECIFIED Status: Acute (3) Diabetes mellitus type 2 Code(s): E11.9 - TYPE 2 DIABETES MELLITUS WITHOUT COMPLICATIONS Status: Chronic (4) UTI (urinary tract infection) Status: Acute (5) Hyponatremia Code(s): E87.1 - HYPO-OSMOLALITY AND HYPONATREMIA Status: Resolved - Plan Plan: Plan: 1. Hyperglycemia, in setting of poorly controlled T2DM - Patient has very poor control and is approaching HHS, will admit to Observation for insulin titration and fluid administration - BG trending down. Last measured value was 335 down from 616 on admission. Will continue accuchecks q4h & moderate SSI. 2. DURAN - Cr of 1.8 on admission. Was 0.76 in 09/2017. - Will continue IVNS @ 150 cc/hr. - Will continue to monitor w/ BMPs. 3. T2DM - A1c on admission 14.2 - Will resume home metformin as it will likely not further exacerbate DURAN since patient is receiving IVFs. - Will do med rec to figure out prescribed home insulin dose to promptly resume as well. 4. UTI - Will continue on rocephin pending urine Cx results. 5. Hyponatremia - Na of 131 on admission but has since increased to 138. - Will continue to monitor with BMPs. 6. HTN - SBP in the 150s in ED. - Will resume home dose of lisinopril when DURAN resolves. 7. Hypothyroid - Will check TSH as per chart review, has been poorly controlled in past. - Will continue home synthroid dose. 8. HLD - Will continue home atorvastatin. IVFs: NS @ 150mL/hr. Abx: Rocephin IV Ppx: DVT- Lovenox, 30. No GI ppx indicated at this time. <Meseret Tom - Last Filed: 12/25/17 07:41> (1) Hyperglycemia due to type 2 diabetes mellitus Code(s): E11.65 - TYPE 2 DIABETES MELLITUS WITH HYPERGLYCEMIA Status: Acute (2) DURAN (acute kidney injury) Code(s): N17.9 - ACUTE KIDNEY FAILURE, UNSPECIFIED Status: Acute (3) UTI (urinary tract infection) Status: Acute (4) Diabetes mellitus type 2 Code(s): E11.9 - TYPE 2 DIABETES MELLITUS WITHOUT COMPLICATIONS Status: Chronic (5) Hyperlipidemia Code(s): E78.5 - HYPERLIPIDEMIA, UNSPECIFIED Status: Chronic (6) Hypertension Code(s): I10 - ESSENTIAL (PRIMARY) HYPERTENSION Status: Chronic (7) Hypothyroidism Code(s): E03.9 - HYPOTHYROIDISM, UNSPECIFIED Status: Chronic <Jinny Schmitt - Last Filed: 12/25/17 12:59> Attending Addendum - Attending Addendum Date/Time: 12/25/17 7568 I personally evaluated the patient and discussed the management with Dr. Tom. I agree with the History, Examination, Assessment and Plan documented above with any addition or exceptions noted below. Patient's insulin will be titrated for better control of glucose. Stopping antibiotics as she has no symptoms of infection. <Jinny Schmitt - Last Filed: 12/25/17 12:59>
[2017-12-25] MEDS ORDERED: Famotidine 20 MG TAB PO SCH (06:00)
[2017-12-25 06:01] LABS: Lactic Acid 2.1 mmol/L (0.5-2.2)
[2017-12-25] MEDS ORDERED: Levothyroxine Sodium 125 MCG TAB PO SCH (06:30)
[2017-12-25] MEDS: Atorvastatin Calcium 40 MG TAB PO SCH (08:59)
[2017-12-25] MEDS: Citalopram 20 MG TAB PO SCH (08:59)
[2017-12-25] MEDS: Enoxaparin Sodium 30 MG/0.3 ML SYRINGE SC SCH (08:59)
[2017-12-25] MEDS ORDERED: Insulin Glargine 30 UNITS in Syringe 0 ML SC SCH (09:00)
[2017-12-25 09:03] LABS: Anion Gap 9 mmol/L (10-20); BUN (Urea Nitrogen) 14 mg/dL (9.8-20.1); Calc. Creatinine Clearance 106 mL/min (70-130); Calcium 9.2 mg/dL (7.8-10.44); Carbon Dioxide 26 mmol/L (22-29); Chloride 104 mmol/L (98-107); Estimated GFR-MDRD 53; Glucose 287 mg/dL (70-105); Potassium 3.6 mmol/L (3.5-5.1); Sodium 135 mmol/L (136-145)
[2017-12-26] MEDS ORDERED: cefTRIAXone\\ROCEPHIN 1 GM in Sodium Chloride 0.9% 100 ML IVPB SCH (01:00)
[2017-12-26 04:21] LABS: #Basophils 0.1 thou/uL (0.0-0.2); #Eosinphils 0.2 thou/uL (0.0-0.7); #Lymphocytes 2.7 thou/uL (1.20-3.40); #Monocytes 0.4 thou/uL (0.11-0.59); #Neutrophils 3.2 thou/uL (1.40-6.50); %Basophils 0.8 % (0.0-1.0); %Eosinophils 2.7 % (0.0-10.0); %Lymphocytes 41.3 % (21.0-51.0); %Monocytes 6.6 % (0.0-10.0); %Neutrophils 48.5 % (42.0-75.0); Hemoglobin 11.7 g/dL (12.0-16.0); Mean Corpuscular HGB CONC 34.9 g/dL (32.0-36.0); Mean Corpuscular Hemoglobin 31.7 pg (27.0-31.0); Mean Corpuscular Volume 90.8 fL (78.0-98.0); Mean Platelet Volume 8.8 fL (7.4-10.4); Platelet Count 174 thou/uL (130-400); RBC Distribution Width 11.6 % (11.5-14.5); White Blood Cell (WBC) Count 6.6 thou/uL (4.8-10.8)
[2017-12-26 04:41] LABS: Anion Gap 11 mmol/L (10-20); BUN (Urea Nitrogen) 11 mg/dL (9.8-20.1); Calc. Creatinine Clearance 131 mL/min (70-130); Calcium 9.1 mg/dL (7.8-10.44); Carbon Dioxide 24 mmol/L (22-29); Chloride 105 mmol/L (98-107); Estimated GFR-MDRD 68; Glucose 228 mg/dL (70-105); Potassium 3.9 mmol/L (3.5-5.1); Sodium 136 mmol/L (136-145)
--- NOTE | 2017-12-26 05:35 | PDOC.FM ---
- Subjective Subjective: Ms. Alegria reports feeling much better today. Denies any pain, nausea, vomiting. Urinating normal. Denies dysuria, polyuria. - Objective Vital Signs & Weight: Vital Signs (12 hours) Temp Pulse Resp BP BP Pulse Ox 12/26/17 04:10 67 18 126/67 96 12/26/17 00:00 98.4 F 69 20 139/66 96 12/25/17 20:15 98.4 F 71 18 126/64 95 12/25/17 20:00 98.4 F 71 18 126/64 95 12/25/17 19:20 97.8 F 70 22 H Weight Weight 116.029 kg I&O: 12/24/17 12/25/17 12/26/17 06:59 06:59 06:59 Intake Total 104 2393 Output Total 300 500 Balance -196 1893 Result Diagrams: 12/26/17 04:06 12/26/17 04:06 <Theresa Ramos - Last Filed: 12/26/17 12:11> - Objective Vital Signs & Weight: Vital Signs (12 hours) Temp Pulse Resp BP BP Pulse Ox 12/26/17 11:05 97.7 F 68 18 162/79 H 94 L 12/26/17 08:00 98.8 F 65 18 12/26/17 07:17 98.8 F 65 18 137/69 96 12/26/17 04:10 67 18 126/67 96 Weight Weight 116.029 kg I&O: 12/25/17 12/26/17 12/27/17 06:59 06:59 06:59 Intake Total 104 2393 Output Total 300 500 Balance -196 1893 Result Diagrams: 12/26/17 04:06 12/26/17 04:06 <Juan Hernandez - Last Filed: 12/26/17 13:50> Phys Exam - Physical Examination Respiratory: no wheezing, no rales, no rhonchi, clear to auscultation bilateral Cardiovascular: RRR, no significant murmur Gastrointestinal: soft, non-tender, positive bowel sounds Musculoskeletal: no edema, pulses present Neurological: non-focal, moves all 4 limbs Psychiatric: normal affect, A&O x 3 Skin: no rash, cap refill <2 seconds <Theresa Ramos - Last Filed: 12/26/17 12:11> Dx/Plan (1) Hyperglycemia due to type 2 diabetes mellitus Code(s): E11.65 - TYPE 2 DIABETES MELLITUS WITH HYPERGLYCEMIA Status: Acute (2) DURAN (acute kidney injury) Code(s): N17.9 - ACUTE KIDNEY FAILURE, UNSPECIFIED Status: Acute (3) Diabetes mellitus type 2 Code(s): E11.9 - TYPE 2 DIABETES MELLITUS WITHOUT COMPLICATIONS Status: Chronic (4) Hyperlipidemia Code(s): E78.5 - HYPERLIPIDEMIA, UNSPECIFIED Status: Chronic (5) Hypertension Code(s): I10 - ESSENTIAL (PRIMARY) HYPERTENSION Status: Chronic (6) Hypothyroidism Code(s): E03.9 - HYPOTHYROIDISM, UNSPECIFIED Status: Chronic - Plan Plan: 1. Hyperglycemia, in setting of poorly controlled T2DM - BG trending down, consistently in the 200s. Down from 616 on admission. Will continue accuchecks q4h & moderate SSI. -On 40 U glargine. Required 24 U SSI in past 24 hrs. Will transition to home dose of 30 U BID -A1c on admission 14.2 - will resume home metformin 2. DURAN - Cr of 1.8 on admission. Was 0.76 in 09/2017. Trending down, now 1.06 - IV fluids discontinued yesterday evening - Will continue to monitor w/ BMPs. 3. Hyponatremia, resolved - Na of 131 on admission, today 136 - Will continue to monitor with BMPs. 4. HTN - SBP in the 150s in ED. 120s in past 24 hrs. - Will change home lisinopril dose to 10 mg and resume 5. Hypothyroid - Will check TSH as per chart review, has been poorly controlled in past. - Will change synthroid dose to 125mcg 6. HLD - Will continue home atorvastatin. Ppx: DVT- Lovenox, 30. No GI ppx indicated at this time. <Theresa Ramos - Last Filed: 12/26/17 12:11> Attending Addendum - Attending Addendum Date/Time: 12/26/17 1050 I personally evaluated the patient and discussed the management with Dr. Ramos. I agree with the History, Examination, Assessment and Plan documented above with any addition or exceptions noted below. Patient with history of hypothyroid and DM2 and noncompliance here with hyerglycemia. Her TSH is still uncontrolled despite high dose replacement, and blood sugars initially 600 range. That has improved. She is currently feeling well and blood sugars are controlled on less than her home regimen. She has been counselled on importance of taking her insulin as directed every day to keep her out of hospital and for senior care survival. She was also counselled on proper way to take thyroid replacement meds. She is doing well and will be discharged home today. <Juan Hernandez - Last Filed: 12/26/17 13:50>
[2017-12-26] MEDS: HumaLOG 300 UNITS/3 ML VIAL SC PRN ×2 (05:51→10:49)
[2017-12-26] MEDS ORDERED: Levothyroxine Sodium 125 MCG TAB PO SCH (06:00)
[2017-12-26] MEDS ORDERED: Insulin Glargine 40 UNITS in Pre-Filled Syringe SC SCH (09:00)
[2017-12-26] MEDS: Atorvastatin Calcium 40 MG TAB PO SCH (09:02)
[2017-12-26] MEDS: Enoxaparin Sodium 30 MG/0.3 ML SYRINGE SC SCH (09:02)
[2017-12-26] MEDS: Citalopram 20 MG TAB PO SCH (09:02)
[2017-12-26 11:23] VITALS: BP 162/79; TEMP 97.7
--- NOTE | 2017-12-27 01:59 | DIS-2 ---
DATE OF ADMISSION: 12/25/2017 DATE OF DISCHARGE: 12/26/2017 RESIDENT: Dr. Theresa Ramos. ADMITTING ATTENDING: Dr. Jinny Schmitt. DISCHARGE ATTENDING: Juan Hernandez MD CONSULTATIONS: None. PROCEDURES: Chest x-ray on 12/24/2017 that showed no evidence of acute cardiopulmonary disease. PRIMARY DIAGNOSES: 1. Hyperglycemia in the setting of poorly controlled type 2 diabetes, hemoglobin A1c on admission 14 .2. 2. Acute kidney injury. 3. Hyponatremia, resolved. 4. Hypothyroid. SECONDARY DIAGNOSES: 1. Hypertension. 2. Hyperlipidemia. DISCHARGE MEDICATIONS: 1. Lipitor 40 mg p.o. daily. 2. Tramadol 50 mg p.o. q.6 hours p.r.n. 3. Metformin 1000 mg p.o. b.i.d. 4. Celexa 20 mg p.o. daily. 5. Insulin Glargine 30 units subcutaneous b.i.d. 6. Levothyroxine 125 mcg p.o. daily. 7. Lisinopril 10 mg p.o. daily. DISCONTINUED MEDICATIONS: 1. Levothyroxine 250 mcg p.o. daily. 2. Lisinopril 40 mg p.o. daily. 3. Humalog 5 units subcutaneous. 4. Insulin glargine 30 units subcutaneous daily. HISTORY OF PRESENT ILLNESS AND HOSPITAL COURSE: Patient presented to the ED with complaint of hyperg lycemia, polydipsia, polyuria, and weakness. She was not found to have HHS or DKA. She was treated with insulin, IV fluids, and showed improvement in her hyperglycemia. She had an acute kidney injury , which resolved with above treatment. Her hypothyroid medication was altered and actually decreased to 125 instead of 250 mcg each day. Lisinopril was also decreased from 40 to 10 mg p.o. daily. Hos pital course was uncomplicated. DISPOSITION: Stable. DISCHARGE INSTRUCTIONS: 1. Location: Home. 2. Diet: Diabetic diet. 3. Activity: As tolerated. 4. Follow up with primary care physician in 1-2 weeks.
== END 2017-12-26 13:16 | disposition home or self-care (01) ==
LOC: ERS 23:33 → 2SW 12-25 03:28
PROVIDERS: ADMIT Family Medicine; ATTEND Family Medicine
DX: E11.65 Type 2 diabetes mellitus with hyperglycemia (principal); N17.9 Acute kidney failure, unspecified; E03.9 Hypothyroidism, unspecified; E87.1 Hypo-osmolality and hyponatremia; I10 Essential (primary) hypertension; E78.5 Hyperlipidemia, unspecified; Z79.4 Long term (current) use of insulin; Z79.899 Other long term (current) drug therapy
CPT/HCPCS: 36415; 36416; 71045; 80048; 80053; 81003; 81015; 82010; 82330; 82435; 82553; 82565; 82570; 82803; 82947; 83036; 83605; 83690; 83735; 83930; 84100; 84132; 84295; 84300; 84443; 84484; 85014; 85025; 87086; 93005; 96361; 96372; 96374; G0378; J0696; J1650; J1815

== ENCOUNTER 2018-08-30 19:50 | Emergency (ER) | payer SELFPAY ==
--- NOTE | 2018-08-30 22:23 | RAD ---
PA AND LATERAL CHEST: Date: 08/30/18 HISTORY: Cough. COMPARISON: 12/24/17. FINDINGS: Cardiac silhouette and pulmonary vasculature are within normal limits. Lungs are clear. Degenerative changes noted in the spine. There has been no interval change from prior study. IMPRESSION: No acute cardiopulmonary process. POS: [facility]
== END 2018-08-30 22:38 | disposition home or self-care (01) ==
LOC: ERS 19:50
DX: R09.82 Postnasal drip (principal); R05 Cough; E78.5 Hyperlipidemia, unspecified; E11.9 Type 2 diabetes mellitus without complications; E03.9 Hypothyroidism, unspecified; I10 Essential (primary) hypertension; F32.9 Major depressive disorder, single episode, unspecified
CPT/HCPCS: 71046

== ENCOUNTER 2018-11-12 00:13 | Emergency (ER) | payer SELFPAY ==
[2018-11-12] MEDS ORDERED: Acetaminophen 500 MG TAB ONE (00:42)
--- NOTE | 2018-11-12 07:27 | RAD ---
EXAM: 3 views of the right ankle HISTORY: Ankle pain after fall COMPARISON: None FINDINGS: 3 views of the right ankle shows no evidence of acute fracture or dislocation. Mild lateral soft tissue swelling is seen. Mild midfoot degenerative changes are present. IMPRESSION: No evidence of acute osseous abnormality.
--- NOTE | 2018-11-12 07:54 | RAD ---
EXAM: 2 views of the right tibia/fibula HISTORY: Leg pain after fall COMPARISON: None FINDINGS: There is no evidence of acute fracture or dislocation. Mild diffuse soft tissue swelling is seen. No degenerative changes are seen in the knee or ankle. IMPRESSION: No evidence of acute osseous abnormality.
--- NOTE | 2018-11-12 07:57 | RAD ---
EXAM: 3 views of the right foot HISTORY: Foot pain COMPARISON: None FINDINGS: 3 views of the right foot shows no evidence of acute fracture or dislocation. Moderate diff use soft tissue swelling is seen. Mild degenerative changes are seen in the great toe metatarsophalangeal joint and in the midfoot. IMPRESSION: No evidence of acute osseous abnormality.
== END 2018-11-12 02:45 | disposition home or self-care (01) ==
LOC: ERS 00:13
DX: S93.401A Sprain of unspecified ligament of right ankle, initial encounter (principal); E78.5 Hyperlipidemia, unspecified; E11.9 Type 2 diabetes mellitus without complications; E03.9 Hypothyroidism, unspecified; I10 Essential (primary) hypertension; F32.9 Major depressive disorder, single episode, unspecified; Z79.899 Other long term (current) drug therapy; Z79.82 Long term (current) use of aspirin; Z79.4 Long term (current) use of insulin; W01.0XXA Fall on same level from slipping, tripping and stumbling without subsequent striking against object, initial encounter

== ENCOUNTER 2019-03-22 22:00 | Emergency (ER) | payer SELFPAY | END 2019-03-22 23:22 | disposition home or self-care (01) | LOC: ERS 22:00 | DX: H01.002 Unspecified blepharitis right lower eyelid (principal); E11.65 Type 2 diabetes mellitus with hyperglycemia; E78.5 Hyperlipidemia, unspecified; E78.00 Pure hypercholesterolemia, unspecified; E11.9 Type 2 diabetes mellitus without complications; E03.9 Hypothyroidism, unspecified; I10 Essential (primary) hypertension; F32.9 Major depressive disorder, single episode, unspecified; Z79.899 Other long term (current) drug therapy; Z79.4 Long term (current) use of insulin | CPT/HCPCS: 36416; 99283 ==

== ENCOUNTER 2019-05-28 21:23 | Emergency (ER) | payer SELFPAY ==
[2019-05-28 21:41] LABS: #Basophils 0.1 thou/uL (0.0-0.2); #Eosinphils 0.2 thou/uL (0.0-0.7); #Lymphocytes 2.2 thou/uL (1.20-3.40); #Monocytes 0.5 thou/uL (0.11-0.59); #Neutrophils 4.3 thou/uL (1.40-6.50); %Basophils 0.7 % (0.0-1.0); %Eosinophils 2.9 % (0.0-10.0); %Lymphocytes 29.8 % (21.0-51.0); %Monocytes 7.5 % (0.0-10.0); %Neutrophils 59.1 % (42.0-75.0); Hemoglobin 12.3 g/dL (12.0-16.0); Mean Corpuscular HGB CONC 34.4 g/dL (32.0-36.0); Mean Corpuscular Hemoglobin 31.5 pg (27.0-31.0); Mean Corpuscular Volume 91.7 fL (78.0-98.0); Mean Platelet Volume 9.2 fL (7.4-10.4); Platelet Count 236 thou/uL (130-400); RBC Distribution Width 11.1 % (11.5-14.5); Red Blood Cell (RBC) Count 3.92 mill/uL (4.20-5.40); White Blood Cell (WBC) Count 7.3 thou/uL (4.8-10.8)
--- NOTE | 2019-05-28 21:47 | RAD ---
Portable frontal chest radiograph: 05/28/2019 COMPARISON: 12/24/2017 HISTORY: Chest pain FINDINGS: Lungs are clear. Heart and mediastinal contours appear within normal limits. IMPRESSION: No acute findings.
[2019-05-28 22:00] LABS: ALT (SGPT) 15 U/L (8-55); AST (SGOT) 14 U/L (5-34); Albumin 4.1 g/dL (3.5-5.0); Alkaline Phosphatase 127 U/L (40-110); Anion Gap 11 mmol/L (10-20); BUN (Urea Nitrogen) 17 mg/dL (9.8-20.1); Bilirubin, Total 0.5 mg/dL (0.2-1.2); Calc. Creatinine Clearance 0 mL/min (70-130); Calcium 9.6 mg/dL (7.8-10.44); Carbon Dioxide 26 mmol/L (22-29); Chloride 104 mmol/L (98-107); Estimated GFR-MDRD 46; Globulin 3.5 g/dL (2.4-3.5); Glucose 328 mg/dL (70-105); Potassium 4.4 mmol/L (3.5-5.1); Protein, Total 7.6 g/dL (6.0-8.3); Sodium 137 mmol/L (136-145)
== END 2019-05-28 22:53 | disposition home or self-care (01) ==
LOC: ERS 21:23
DX: R07.9 Chest pain, unspecified (principal); E78.5 Hyperlipidemia, unspecified; E78.00 Pure hypercholesterolemia, unspecified; E11.9 Type 2 diabetes mellitus without complications; E03.9 Hypothyroidism, unspecified; I10 Essential (primary) hypertension; F32.9 Major depressive disorder, single episode, unspecified; Z79.899 Other long term (current) drug therapy; Z79.4 Long term (current) use of insulin
CPT/HCPCS: 36415; 71045; 80053; 84484; 85025; 93005

== ENCOUNTER 2019-11-25 18:45 | Inpatient (IN) | payer OTHER ==
[2019-11-25] MEDS ORDERED: Cefepime 2 GM VIAL ONE (19:20)
[2019-11-25 19:23] LABS: #Eosinphils 0.1 thou/uL (0.0-0.7); #Lymphocytes 1.3 thou/uL (1.20-3.40); #Monocytes 1.3 thou/uL (0.11-0.59); %Basophils 0.1 % (0.0-1.0); %Eosinophils 0.4 % (0.0-10.0); %Monocytes 7.7 % (0.0-10.0); %Neutrophils 83.8 % (42.0-75.0); Mean Corpuscular HGB CONC 36.2 g/dL (32.0-36.0); Mean Corpuscular Hemoglobin 32.5 pg (27.0-31.0); Mean Corpuscular Volume 89.6 fL (78.0-98.0); Mean Platelet Volume 9.8 fL (7.4-10.4); Platelet Count 213 thou/uL (130-400); RBC Distribution Width 10.9 % (11.5-14.5); White Blood Cell (WBC) Count 16.7 thou/uL (4.8-10.8)
--- NOTE | 2019-11-25 19:24 | RAD ---
FRONTAL RADIOGRAPH CHEST PORTABLE UPRIGHT: Date: 11-25-2019 Comparison: 05-28-19 History: Pain FINDINGS: Lungs are clear. Heart and mediastinal contours are unremarkable. IMPRESSION: No acute findings. POS: [facility]
--- NOTE | 2019-11-25 19:38 | RAD ---
RIGHT FOOT THREE VIEWS: History: Wound to bottom of foot. FINDINGS: Soft tissue swelling of the foot is seen. A soft tissue wound and air is seen in the soft tissues on the plantar side of the foot near the third toe. There is a slightly triangle foreign body seen withi n the plantar soft tissues. IMPRESSION: Foreign body within the plantar soft tissues. No evidence for osteomyelitis. POS: [facility]
[2019-11-25 19:42] LABS: ALT (SGPT) 21 U/L (8-55); AST (SGOT) 16 U/L (5-34); Albumin 3.9 g/dL (3.5-5.0); Alkaline Phosphatase 160 U/L (40-110); Anion Gap 14 mmol/L (10-20); BUN (Urea Nitrogen) 16 mg/dL (9.8-20.1); Bilirubin, Total 1.2 mg/dL (0.2-1.2); Calc. Creatinine Clearance 0 mL/min (70-130); Calcium 9.6 mg/dL (7.8-10.44); Carbon Dioxide 23 mmol/L (22-29); Chloride 100 mmol/L (98-107); Estimated GFR-MDRD 43; Glucose 328 mg/dL (70-105); Potassium 4.4 mmol/L (3.5-5.1); Protein, Total 7.9 g/dL (6.0-8.3); Sodium 133 mmol/L (136-145)
[2019-11-25] MEDS ORDERED: Adacel (T-DAP) 0.5 ML SYRINGE ONE ×2 (19:50→19:54)
--- NOTE | 2019-11-25 20:11 | RAD ---
RIGHT FOOT THREE VIEWS: History: Status post foreign body removal. Comparison: Earlier examination. FINDINGS: The radiopaque foreign body has been removed. I do not see any residual foreign body. IMPRESSION: Successful removal of foreign body. POS: [facility]
--- NOTE | 2019-11-25 20:17 | PDOC.FPRHP ---
- History of Present Illness Chief Complaint: Foot pain History of Present Illness: Ms. Alegria is a pleasant 59yoF who presents to the ED for R foot pain. She states she started having pain in her right foot 3-4 days ago. It was swollen and felt heavy. Today she woke up with it more swollen and red. She soaked it in epsom salt and water and it did not feel better. Her daughter looked at the bottom of the foot and saw a cut. She does not recall stepping on anything or any injury. She couldn't feel the cut. She states she has been having numbness in her feet for the past several months , for which she takes gabapentin. ED Course: 2L NS, Vancomycin, cefepime, TDAP - Allergies/Adverse Reactions Allergies Allergy/AdvReac Type Severity Reaction Status Date / Time No Known Drug Allergies Allergy Verified 12/25/17 04:51 - Home Medications Medication Instructions Recorded Confirmed Type Atorvastatin Calcium [Lipitor] 40 mg PO DAILY 10/01/17 12/25/17 History Citalopram [CeleXA] 20 mg PO DAILY 10/01/17 12/25/17 History metFORMIN HCl [Metformin HCl] 1,000 mg PO BID 10/01/17 12/25/17 History traMADol HCl [Tramadol HCl] 50 mg PO Q6HR PRN 10/01/17 12/25/17 History Insulin Glargine,Hum.Rec.Anlog 30 units SQ BID #0 12/26/17 12/25/17 Rx [Lantus] Levothyroxine Sodium 125 mcg PO DAILY #30 tablet 12/26/17 Rx Lisinopril [Zestril] 10 mg PO DAILY #30 tab 12/26/17 Rx - History PMHx: Hypothroidism Type II DM Hypercholesterolemia HEIDI GERD HTN PSHx: Hermorrhoid repair 2000 Hyst 1987 Bilateral cataract repair FHx: Dad: , HTN Social: Denies tobacco, alcohol, or illicit drug use. Colonoscopy 2 years ago - normal. - Review of Systems General: reports: fever/chills. denies: weight/appetite/sleep changes, night sweats, fatigue Eyes: denies: eye pain, vision changes ENT: denies: nasal congestion, rhinorrhea Respiratory: denies: cough, congestion, shortness of breath Cardiovascular: denies: chest pain, palpitation, edema, paroxysmal nocturnal dyspnea, orthopnea Gastrointestinal: denies: nausea, vomiting, diarrhea, constipation Genitourinary: denies: incontinence, dysuria, polyuria Skin: denies: rashes, lesions, jaundice Musculoskeletal: reports: pain, tenderness, swelling. denies: stiffness Neurological: denies: numbness, syncope, seizure Psychological: denies: anxiety, depression - Vital signs BP: 152/84, Pulse: 91, Resp: 20, Pain: 2, O2 sat: 97 on (Room Air) Weight 117kg - Physical Exam Constitutional: NAD, awake, alert and oriented, well developed HEENT: normocephalic and atraumatic, PERRLA, EOMI, conjunctiva clear, grossly normal vision, grossly normal hearing, MMM Neck: supple, trachea midline Heart: RRR, normal S1/S2, no murmurs/rubs/gallops Lungs: CTAB, no respiratory distress, good air movement Abdomen: soft, bowel sounds present -Abdomen: TTP in RUQ. + Paz's sign. Musculoskeletal: normal structure, normal tone Neurological: no focal deficit, CN II-XII intact, normal sensation Skin: good turgor -Skin: Area of erythema on the top of the R foot, down in between the great and second toes. Bandaged. Small 1cm cut on bottom of foot. Heme/Lymphatic: no unusual bruising or bleeding, no purpura Psychiatric: normal mood and affect, good judgment and insight, intact recent and remote memory FMR H&P: Results - Labs Result Diagrams: 11/25/19 19:11/25/19 19: Lab results: WBC 16.7 thou/uL (4.8-10.8) H 11/25/19 19:01 Hgb 12.0 g/dL (12.0-16.0) 11/25/19 19:01 Hct 33.2 % (36.0-47.0) L 11/25/19 19: MCV 89.6 fL (78.0-98.0) 11/25/19 19: Plt Count 213 thou/uL (130-400) 11/25/19 19: Neutrophils % 83.8 % (42.0-75.0) H 11/25/19 19: Sodium 133 mmol/L (136-145) L 11/25/19 19:01 Potassium 4.4 mmol/L (3.5-5.1) 11/25/19 19:01 Chloride 100 mmol/L (98-107) 11/25/19 19:01 Carbon Dioxide 23 mmol/L (22-29) 11/25/19 19:01 BUN 16 mg/dL (9.8-20.1) 11/25/19 19:01 Creatinine 1.27 mg/dL (0.6-1.1) H 11/25/19 19:01 Glucose 328 mg/dL (70-105) H 11/25/19 19:01 Lactic Acid 1.5 mmol/L (0.5-2.2) 11/25/19 19:00 Calcium 9.6 mg/dL (7.8-10.44) 11/25/19 19:01 Total Bilirubin 1.2 mg/dL (0.2-1.2) 11/25/19 19:01 AST 16 U/L (5-34) 11/25/19 19:01 ALT 21 U/L (8-55) 11/25/19 19:01 Alkaline Phosphatase 160 U/L (40-110) H 11/25/19 19:01 Serum Total Protein 7.9 g/dL (6.0-8.3) 11/25/19 19:01 Albumin 3.9 g/dL (3.5-5.0) 11/25/19 19:01 - Radiology Interpretation Chest x-ray Status: report reviewed by me (No acute findings) Other Status: report reviewed by me (FOOT X-RAY: Foreign body present in plantar surface. No evidence of osteomyelitis. Repeat x-ray showed successful removal.) FMR H&P: A/P - Problem List (1) DURAN (acute kidney injury) Current Visit: No Status: Acute Priority: Medium Code(s): N17.9 - ACUTE KIDNEY FAILURE, UNSPECIFIED (2) Cellulitis Current Visit: No Status: Acute Priority: High Code(s): L03.90 - CELLULITIS, UNSPECIFIED Qualifiers: Site of cellulitis: extremity Site of cellulitis of extremity: upper extremity Laterality: left Qualified Code(s): L03.114 - Cellulitis of left upper limb (3) Hyperglycemia due to type 2 diabetes mellitus Current Visit: No Status: Acute Code(s): E11.65 - TYPE 2 DIABETES MELLITUS WITH HYPERGLYCEMIA (4) Diabetes mellitus type 2 Current Visit: No Status: Chronic Priority: Medium Code(s): E11.9 - TYPE 2 DIABETES MELLITUS WITHOUT COMPLICATIONS (5) Hyperlipidemia Current Visit: No Status: Chronic Priority: Low Code(s): E78.5 - HYPERLIPIDEMIA, UNSPECIFIED (6) Hypertension Current Visit: No Status: Chronic Priority: Medium Code(s): I10 - ESSENTIAL (PRIMARY) HYPERTENSION (7) Hypothyroidism Current Visit: No Status: Chronic Priority: Medium Code(s): E03.9 - HYPOTHYROIDISM, UNSPECIFIED - Plan Sepsis 2/2 Diabetic Foot Infection - No drainable abscess. XR showed foreign body which was removed in ED. - Will cover with empiric, broad spectrum antibiotics (Vanc, Cefepime and Metronidazole 11/25/19) - Blood cultures drayn - Received 2L bolus in ED. Will start maintenance. RUQ pain - Outpatient imaging had been ordered, but not obtained. - RUQ US Ordered. - Alk phos elevated. DURAN vs CKD - Cr elevated at 1.27 today. - Repeat BMP in the morning. DM II - Resume home medication regimen - A1c ordered - SSI and hypoglycemia protocol ordered. Hypothyroidism - TSH ordered due to high levothyroxine dose - Resume home medications HTN - Resume home medications HLD - Resume home medications Fluids: LR @ 75mL/hour Code Status: Full VTE PPx: Lovenox Dispo: St[facility], inpatient. Likely LOS > 48 hours pending culture results. FMR H&P: Upper Level - Plan Date/Time: 11/25/192012 PCP: [facility] HPI: Patient comes in for diabetic foot infection. Foot started to feel swollen about 3-4 days ago but that she does not feel any pain on her foot. After a few days daughter looked at the foot and noticed a laceration, came to ER, in the ER a shard of glass was removed from the laceration. Fever started last night. Denies cough, CP, SOB, N/V/D. Additionally, patient has had RUQ pain for the past 3 months, she states it is difficult to characterize although mostly pressure. Pain comes and goes. Sometimes worse with eating, mahad. greasy foods. PHYSICAL EXAMINATION: General: NAD, alert and oriented x3 HEENT: PERRLA, EOMI, normal sclera, oropharynx without erythema or exudate Neck: Supple. Full ROM. Heart/Cardiovascular System: RRR, Cap refill < 3 seconds, no rub, no murmur Lungs/Respiratory System: CTA-B, no resp distress Abdomen/Gastro-Intestinal System: Paz +, soft, non-distended, normal bowel sounds Extremities: Warm extremities. R foot warm to touch, pulses intact, 2x3cm area of erythema on dorsal aspect of foot, 2cm lac on the plantar side between 2nd and 3rd metatarsal Neuro: No gross deficits appreciated. CN 2-12 grossly intact Psychiatry: Awake, Alert and cooperative with exam Musculoskeletal: Full ROM A/P: # Sepsis 2/2 Diabetic Foot Infection - No wound apparent, no site appropriate for probe - Cefepime, Vanc, Flaggyl, blood cultures pending - Foot x-ray neg for osteomylelitis, low suspicion at this time for osteo - s/p 2L fluid resuscitation in ED, tdap in ED # Elevated ALP, RUQ pain - RUQ US ordered from clinic a few weeks ago, not completed, RUQ US ordered - Multiple Myeloma is on differential but less likely, consider if initial workup negative # DURAN on likely CKDIII - Baseline Cr appears to be around 1.0, 1.37 today # DM2 with neuropathy - A1C, home regimen, ssi # Hypothyroidism - Check TSH, home meds # HTN - Home meds Fluids: LR Code: full PPx: lovenox Dispo: inpatient, pending culture results Addendum - Attending - Attending Attestation Date/Time: 11/25/19 4970 I personally evaluated the patient and discussed the management with Dr. Reyes and Nader. I agree with the History, Examination, Assessment and Plan documented above with any addition or exceptions noted below.
[2019-11-25 21:00] LABS: Bacteria/HPF 4+ HPF (None Seen); Bilirubin Negative (Negative); Blood, Urine Negative (Negative); Clarity Turbid (Clear); Glucose, Urine (Dipstick) >=1000 mg/dL (Negative); Leukocyte Negative Leu/uL (Negative); Nitrite Negative (Negative); Protein, Urine (Dipstick) 50 mg/dL (Neg-Trace); Urobilinogen 3 mg/dL (Less than 2)
[2019-11-25] MEDS ORDERED: HumaLOG 300 UNITS/3 ML VIAL SC PRN (21:06)
[2019-11-25] MEDS ORDERED: Dextrose 50% Abboject 50 ML SYRINGE SLOW IVP PRN (21:06)
[2019-11-25] MEDS ORDERED: Dextrose 5% in Water 1,000 ML IV PRN (21:06)
[2019-11-25 21:47] LABS: Hemoglobin A1c 11.8 % (4.0-6.0)
[2019-11-25 22:07] VITALS: BMI 43.9
[2019-11-25] MEDS ORDERED: Insulin Regular 300 UNITS/3 ML VIAL ONE (23:03)
[2019-11-25] MEDS: metroNIDAZOLE 500 MG in Premix Bag 1 BAG IVPB SCH (23:19)
[2019-11-26 05:22] LABS: #Eosinphils 0.1 thou/uL (0.0-0.7); #Monocytes 1.4 thou/uL (0.11-0.59); #Neutrophils 9.9 thou/uL (1.40-6.50); %Basophils 0.2 % (0.0-1.0); %Eosinophils 1.1 % (0.0-10.0); %Lymphocytes 15.2 % (21.0-51.0); %Monocytes 10.1 % (0.0-10.0); %Neutrophils 73.5 % (42.0-75.0); Hemoglobin 10.2 g/dL (12.0-16.0); Mean Corpuscular HGB CONC 35.8 g/dL (32.0-36.0); Mean Corpuscular Hemoglobin 32.2 pg (27.0-31.0); Mean Corpuscular Volume 89.8 fL (78.0-98.0); Mean Platelet Volume 9.4 fL (7.4-10.4); Platelet Count 186 thou/uL (130-400); RBC Distribution Width 10.8 % (11.5-14.5); Red Blood Cell (RBC) Count 3.17 mill/uL (4.20-5.40); White Blood Cell (WBC) Count 13.4 thou/uL (4.8-10.8)
[2019-11-26 05:42] LABS: Anion Gap 10 mmol/L (10-20); BUN (Urea Nitrogen) 13 mg/dL (9.8-20.1); Calc. Creatinine Clearance 127 mL/min (70-130); Calcium 8.3 mg/dL (7.8-10.44); Carbon Dioxide 22 mmol/L (22-29); Chloride 106 mmol/L (98-107); Estimated GFR-MDRD 65; Glucose 295 mg/dL (70-105); Potassium 3.7 mmol/L (3.5-5.1); Sodium 134 mmol/L (136-145)
[2019-11-26] MEDS: Levothyroxine Sodium 100 MCG TAB PO SCH (05:48)
[2019-11-26] MEDS: metroNIDAZOLE 500 MG in Premix Bag 1 BAG IVPB SCH (05:48)
[2019-11-26] MEDS: HumaLOG 300 UNITS/3 ML VIAL SC PRN ×3 (06:29→17:02)
--- NOTE | 2019-11-26 07:26 | PDOC.FM ---
- Subjective Subjective: Pt is fairly unchanged from yesterday. She remains with RUQ pain. Her U/S has been performed. She does have worse pain depending on what she eats. In terms of her foot she remains with pain. She has feeling. The wound has been apparent for 4-5 days. - Objective Vital Signs & Weight: Vital Signs (12 hours) Temp Pulse Resp BP Pulse Ox 11/26/19 04:40 99.2 F 86 18 131/69 95 11/26/19 00:30 98.4 F 11/25/19 21:50 100.2 F H 90 18 166/74 H 94 L Weight Weight 119.748 kg I&O: 11/25/19 11/26/19 11/27/19 06:59 06:59 06:59 Intake Total 300 Balance 300 Result Diagrams: 11/26/19 05:10 11/26/19 05:10 Phys Exam - Physical Examination Constitutional: NAD Neck: no JVD, full ROM Respiratory: no wheezing, no rales, clear to auscultation bilateral Cardiovascular: RRR, no significant murmur Gastrointestinal: soft, non-tender, positive bowel sounds Musculoskeletal: pulses present 1 cm incision to plantar surface of R ft w/o pus formation erythema to borders drawn yesterday on dorsal R foot, warm to touch Neurological: non-focal, normal sensation Psychiatric: normal affect, A&O x 3 Dx/Plan (1) Cellulitis Code(s): L03.90 - CELLULITIS, UNSPECIFIED Status: Acute Qualifiers: Site of cellulitis: extremity Site of cellulitis of extremity: upper extremity Laterality: left Qualified Code(s): L03.114 - Cellulitis of left upper limb (2) Hyperglycemia due to type 2 diabetes mellitus Code(s): E11.65 - TYPE 2 DIABETES MELLITUS WITH HYPERGLYCEMIA Status: Acute (3) Hyperlipidemia Code(s): E78.5 - HYPERLIPIDEMIA, UNSPECIFIED Status: Chronic (4) Hypertension Code(s): I10 - ESSENTIAL (PRIMARY) HYPERTENSION Status: Chronic (5) Hypothyroidism Code(s): E03.9 - HYPOTHYROIDISM, UNSPECIFIED Status: Chronic (6) RUQ abdominal pain Code(s): R10.11 - RIGHT UPPER QUADRANT PAIN Status: Acute - Plan Plan: Sepsis 2/2 Diabetic Foot Infection -improved - No drainable abscess. XR showed foreign body which was removed in ED. - Will cover with empiric, broad spectrum antibiotics (Vanc, Cefepime and Metronidazole 11/25/19) - consider switching to oral bactrim/augmentin tomorrow - Blood cultures pending RUQ pain - Outpatient imaging had been ordered, but not obtained. - RUQ US Ordered. - Alk phos elevated. DURAN - resolved - Improved with fluids DM II - Resume home medication regimen - A1c 11.8 - pt is not well controlled. Will titrate insulin based on requirement from SSI - SSI and hypoglycemia protocol ordered. Hypothyroidism - TSH WNL - Resume home medications HTN - Resume home medications HLD - Resume home medications Fluids: SL Code Status: Full VTE PPx: Lovenox Dispo: [facility], inpatient. Likely LOS > 48 hours pending culture results. Addendum - Attending - Attending Attestation Date/Time: 11/26/19 3807 I personally evaluated the patient and discussed the management with Dr. Guadarrama. I agree with the History, Examination, Assessment and Plan documented above with any addition or exceptions noted below. Patient here for cellulitis associated with foreign body in the foot now removed. Continue Vanc and Cefepime. Wound care. Hopeful to transition to PO abx tomorrow. Needs improved glycemic control.
--- NOTE | 2019-11-26 07:40 | ULT ---
Sonogram right upper quadrant HISTORY: Right upper quadrant pain. Findings a small amount of non-shadowing echogenicity is present within the dependent portion of the gallbladder lumen. No gallbladder wall thickening or para cholecystic fluid. Gallbladder measures up 6.7 cm. No gallbladder wall thickening or para cholecystic fluid. Common duct is 0.3 cm diameter. Liver unremarkable without focal mass or intrahepatic biliary dilatat ion. No free fluid. IMPRESSION : Biliary sludge is evidence of chronic gallbladder dyskinesis. No evidence of acute biliary obstructio n.
[2019-11-26] MEDS ORDERED: Insulin Glargine 30 UNITS in Pre-Filled Syringe 1 EACH SC SCH (09:00)
[2019-11-26] MEDS: Cefepime 2 GM in Sodium Chloride 0.9% 100 ML IVPB SCH ×2 (09:13→20:35)
[2019-11-26] MEDS: Citalopram 20 MG TAB PO SCH (09:13)
[2019-11-26] MEDS: Lisinopril 20 MG TAB PO SCH (09:13)
[2019-11-26] MEDS: metFORMIN 500 MG TAB PO SCH ×2 (09:13→17:01)
[2019-11-26] MEDS: Enoxaparin Sodium 40 MG/0.4 ML SYRINGE SC SCH (09:14)
[2019-11-26] MEDS: Atorvastatin Calcium 40 MG TAB PO SCH (09:25)
[2019-11-26] MEDS: Insulin Glargine 30 UNITS in Pre-Filled Syringe 1 EACH SC SCH (09:25)
[2019-11-26] MEDS: Benzonatate 100 MG CAP PO SCH ×2 (15:19→20:35)
[2019-11-26] MEDS: Acetaminophen 325 MG TAB PO PRN ×2 (17:01→21:44)
[2019-11-26] MEDS: Vancomycin HCl 1.75 GM in Sodium Chloride 0.9% 500 ML IVPB SCH (20:35)
[2019-11-27] MEDS: Levothyroxine Sodium 100 MCG TAB PO SCH (05:39)
[2019-11-27] MEDS: HumaLOG 300 UNITS/3 ML VIAL SC PRN (05:39)
[2019-11-27] MEDS: Acetaminophen 325 MG TAB PO PRN (05:43)
--- NOTE | 2019-11-27 08:18 | PDOC.FM ---
- Subjective Subjective: Pt is doing well today. She denies fever/chills. She remains with some tenderness to R foot but improving. She is tolerating a PO intake. She required Humalog 26 U overnight. - Objective Vital Signs & Weight: Vital Signs (12 hours) Temp Pulse Resp BP Pulse Ox 11/27/19 07:27 98.0 F 77 18 119/69 93 L 11/27/19 06:43 96 Weight Admit Weight 119.748 kg Weight 119.748 kg I&O: 11/26/19 11/27/19 11/28/19 06:59 06:59 06:59 Intake Total 300 1220 Balance 300 1220 Result Diagrams: 11/27/19 08:30 11/27/19 08:30 Phys Exam - Physical Examination Constitutional: NAD HEENT: PERRLA, moist MMs Neck: supple, full ROM Respiratory: no wheezing, clear to auscultation bilateral Cardiovascular: RRR, no significant murmur Gastrointestinal: soft, non-tender decreased pulses bilaterally; erythema improving on R dorsal surface R dorsal surface warm to touch Neurological: non-focal, moves all 4 limbs Psychiatric: normal affect, A&O x 3 Skin: normal turgor, cap refill <2 seconds Dx/Plan (1) Cellulitis Code(s): L03.90 - CELLULITIS, UNSPECIFIED Status: Acute Qualifiers: Site of cellulitis: extremity Site of cellulitis of extremity: upper extremity Laterality: left Qualified Code(s): L03.114 - Cellulitis of left upper limb (2) Hyperglycemia due to type 2 diabetes mellitus Code(s): E11.65 - TYPE 2 DIABETES MELLITUS WITH HYPERGLYCEMIA Status: Acute (3) Hyperlipidemia Code(s): E78.5 - HYPERLIPIDEMIA, UNSPECIFIED Status: Chronic (4) Hypertension Code(s): I10 - ESSENTIAL (PRIMARY) HYPERTENSION Status: Chronic (5) Hypothyroidism Code(s): E03.9 - HYPOTHYROIDISM, UNSPECIFIED Status: Chronic (6) RUQ abdominal pain Code(s): R10.11 - RIGHT UPPER QUADRANT PAIN Status: Acute - Plan Plan: Sepsis 2/2 Diabetic Foot Infection -improved compared to borders but still warm to touch/erythematous - No drainable abscess. XR showed foreign body which was removed in ED. - Will cover with empiric, broad spectrum antibiotics - vanc, cefepime on 11/25; d /c metronidazole yesterday; consider switching to oral bactrim/augmentin tomorrow as she could continue to make improvements - Blood cultures pending RUQ pain - refer to outpt surgery; tylenol for pain control - Alk phos elevated. DURAN - resolved - Improved with fluids DM II - Increase home Lantus to 35 U qam. Monitor overnight. She required Humalog 26 U overnight. - A1c 11.8 - pt is not well controlled. Will titrate insulin based on requirement from SSI - SSI and hypoglycemia protocol ordered. Hypothyroidism - TSH WNL - Resume home medications HTN - Resume home medications HLD - Resume home medications Fluids: SL Code Status: Full VTE PPx: Lovenox Dispo: [facility], inpatient. Likely LOS > 48 hours pending culture results. Addendum - Attending - Attending Attestation Date/Time: 11/27/19 1521 I personally evaluated the patient and discussed the management with Dr. Guadarrama. I agree with the History, Examination, Assessment and Plan documented above with any addition or exceptions noted below. Patient overall stable. Cellulitis mildly improved but still with moderate erythema as well as tenderness. Due to the location of her redness in association with her plantar location of her foreign body s/p removal, will obtain CT imaging to ensure no fluid collection or deeper infection in the foot. Continue IV abx, adding Clinda for toxin binding to help with erythema. Cultures pending. Glycemic control escalation.
[2019-11-27 09:00] LABS: #Eosinphils 0.1 thou/uL (0.0-0.7); #Lymphocytes 1.5 thou/uL (1.20-3.40); #Monocytes 1.3 thou/uL (0.11-0.59); #Neutrophils 10.1 thou/uL (1.40-6.50); %Basophils 0.2 % (0.0-1.0); %Lymphocytes 11.6 % (21.0-51.0); %Monocytes 10.1 % (0.0-10.0); %Neutrophils 77.2 % (42.0-75.0); Hemoglobin 9.1 g/dL (12.0-16.0); Mean Corpuscular HGB CONC 33.1 g/dL (32.0-36.0); Mean Corpuscular Hemoglobin 29.9 pg (27.0-31.0); Mean Corpuscular Volume 90.3 fL (78.0-98.0); Mean Platelet Volume 9.5 fL (7.4-10.4); Platelet Count 184 thou/uL (130-400); RBC Distribution Width 10.7 % (11.5-14.5); Red Blood Cell (RBC) Count 3.05 mill/uL (4.20-5.40); White Blood Cell (WBC) Count 13.1 thou/uL (4.8-10.8)
[2019-11-27 09:12] LABS: Anion Gap 11 mmol/L (10-20); BUN (Urea Nitrogen) 10 mg/dL (9.8-20.1); Calc. Creatinine Clearance 141 mL/min (70-130); Calcium 8.3 mg/dL (7.8-10.44); Carbon Dioxide 23 mmol/L (22-29); Chloride 105 mmol/L (98-107); Estimated GFR-MDRD 73; Glucose 174 mg/dL (70-105); Potassium 3.5 mmol/L (3.5-5.1); Sodium 135 mmol/L (136-145)
[2019-11-27] MEDS: metFORMIN 500 MG TAB PO SCH ×2 (09:15→17:01)
[2019-11-27] MEDS: Lisinopril 20 MG TAB PO SCH (09:15)
[2019-11-27] MEDS: Citalopram 20 MG TAB PO SCH (09:15)
[2019-11-27] MEDS: Benzonatate 100 MG CAP PO SCH ×3 (09:15→20:41)
[2019-11-27] MEDS: Atorvastatin Calcium 40 MG TAB PO SCH (09:16)
[2019-11-27] MEDS: Enoxaparin Sodium 40 MG/0.4 ML SYRINGE SC SCH (09:16)
[2019-11-27] MEDS: Insulin Glargine 30 UNITS in Pre-Filled Syringe 1 EACH SC SCH (09:16)
[2019-11-27] MEDS: Cefepime 2 GM in Sodium Chloride 0.9% 100 ML IVPB SCH ×2 (09:16→20:41)
[2019-11-27] MEDS ORDERED: Insulin Glargine 35 UNITS in Pre-Filled Syringe 1 EACH SC SCH (09:30)
[2019-11-27] MEDS ORDERED: Clindamycin 150 MG CAP PO SCH (12:15)
[2019-11-27] MEDS: Gabapentin 300 MG CAP PO SCH ×2 (17:01→20:42)
[2019-11-27] MEDS: Clindamycin 150 MG CAP PO SCH (17:01)
--- NOTE | 2019-11-27 21:29 | CT ---
EXAM: RIGHT LOWER EXTREMITY CT WITH IV CONTRAST: 11/27/19 HISTORY: Concern for infection. Right foreign body removal. COMPARISON: Plain film examination 11/25/19. On the 11/25/19, 7:50 p.m. plain film x-ray there is soft tissue gas noted primarily between the second and third toes on the plantar aspect of the foot. There is an associated skin defect evidence for pr ior foreign body removal. There was some soft tissue gas noted on the initial plain film examination of 11/25/19, 7:12 p.m. with the associated foreign body. There is evidence for soft tissue gas noted in the plantar surface of the foot primarily at the secon d and third toe level but extending to the fourth toe level. No evidence for associated abscess. Ther e is an open wound extending to the plantar surface probably the site of the foreign body and removal . No significant acute osseous process. Vascular calcifications are noted. IMPRESSION: Evidence for plantar soft tissue gas at the level of the proximal phalanges of the second, third and fourth toes with an associated small plantar open wound. This gas could be related to the open wound. Gas producing infection cannot be excluded. No evidence for a drainable abscess. Evidence for some s mall vessel arterial vascular calcification. If patient's symptoms persist or worsen or if there remains clinical concern for an abscess or infect ion an additional imaging is felt to be needed clinically, follow-up MRI study might give additional information. POS: [facility]
[2019-11-27] MEDS: Vancomycin HCl 1.75 GM in Sodium Chloride 0.9% 500 ML IVPB SCH (21:38)
[2019-11-27] MEDS: Vancomycin 1.5 GRAM/300 ML BAG 1.5 GM in Premix Bag 1 BAG IVPB SCH (21:42)
[2019-11-28] MEDS: Clindamycin 150 MG CAP PO SCH ×4 (00:10→18:36)
[2019-11-28] MEDS: Levothyroxine Sodium 100 MCG TAB PO SCH (06:04)
[2019-11-28 07:00] LABS: #Eosinphils 0.1 thou/uL (0.0-0.7); #Lymphocytes 1.5 thou/uL (1.20-3.40); #Monocytes 1.3 thou/uL (0.11-0.59); #Neutrophils 10.1 thou/uL (1.40-6.50); %Basophils 0.3 % (0.0-1.0); %Eosinophils 1.1 % (0.0-10.0); %Lymphocytes 11.7 % (21.0-51.0); %Monocytes 10.1 % (0.0-10.0); %Neutrophils 76.9 % (42.0-75.0); Hemoglobin 9.8 g/dL (12.0-16.0); Mean Corpuscular HGB CONC 33.6 g/dL (32.0-36.0); Mean Corpuscular Hemoglobin 30.4 pg (27.0-31.0); Mean Corpuscular Volume 90.7 fL (78.0-98.0); Mean Platelet Volume 9.3 fL (7.4-10.4); Platelet Count 229 thou/uL (130-400); RBC Distribution Width 10.8 % (11.5-14.5); Red Blood Cell (RBC) Count 3.22 mill/uL (4.20-5.40); White Blood Cell (WBC) Count 13.1 thou/uL (4.8-10.8)
[2019-11-28 07:18] LABS: Anion Gap 12 mmol/L (10-20); BUN (Urea Nitrogen) 10 mg/dL (9.8-20.1); Calc. Creatinine Clearance 136 mL/min (70-130); Calcium 8.8 mg/dL (7.8-10.44); Carbon Dioxide 25 mmol/L (22-29); Chloride 104 mmol/L (98-107); Estimated GFR-MDRD 70; Glucose 103 mg/dL (70-105); Potassium 3.8 mmol/L (3.5-5.1); Sodium 137 mmol/L (136-145)
--- NOTE | 2019-11-28 07:29 | PDOC.FM ---
- Subjective Subjective: Pt doing well today. She does not have worsening pain in R foot. She denies fever, chills, abdominal pain, diarrhea, constipation. No complaints. Her daughter will be in the room during rounds. - Objective Vital Signs & Weight: Vital Signs (12 hours) Temp Pulse Resp BP Pulse Ox 11/28/19 07:24 98.1 F 75 20 152/88 H 95 11/28/19 04:00 98.2 F 76 18 120/67 92 L 11/28/19 00:00 99.1 F 80 18 119/66 94 L Weight Admit Weight 119.748 kg Weight 119.748 kg I&O: 11/27/19 11/28/19 11/29/19 06:59 06:59 06:59 Intake Total 1220 Balance 1220 Result Diagrams: 11/28/19 06:11 11/28/19 06:11 Phys Exam - Physical Examination Constitutional: NAD HEENT: PERRLA, moist MMs Neck: no JVD, full ROM Respiratory: no wheezing, clear to auscultation bilateral Cardiovascular: RRR, no significant murmur Gastrointestinal: soft, non-tender, positive bowel sounds R gas formation on plantar surface under skin; Erythema at borders Dx/Plan (1) Cellulitis Code(s): L03.90 - CELLULITIS, UNSPECIFIED Status: Acute Qualifiers: Site of cellulitis: extremity Site of cellulitis of extremity: upper extremity Laterality: left Qualified Code(s): L03.114 - Cellulitis of left upper limb (2) Hyperglycemia due to type 2 diabetes mellitus Code(s): E11.65 - TYPE 2 DIABETES MELLITUS WITH HYPERGLYCEMIA Status: Acute (3) Hyperlipidemia Code(s): E78.5 - HYPERLIPIDEMIA, UNSPECIFIED Status: Chronic (4) Hypertension Code(s): I10 - ESSENTIAL (PRIMARY) HYPERTENSION Status: Chronic (5) Hypothyroidism Code(s): E03.9 - HYPOTHYROIDISM, UNSPECIFIED Status: Chronic (6) RUQ abdominal pain Code(s): R10.11 - RIGHT UPPER QUADRANT PAIN Status: Acute - Plan Plan: Sepsis 2/2 Diabetic Foot Infection -improved compared to borders but still warm to touch/erythematous - not improving, CT revealed gas formation, exam revealed gas under plantar surface; continue triple abx therapy; consult surg - Blood cultures pending RUQ pain - refer to outpt surgery; tylenol for pain control - Alk phos elevated. DURAN - resolved - Improved with fluids DM II - Increase home Lantus to 35 U qam. Monitor overnight. Her actual home dose is 35 U BID. Will not increase as her fasting this am was 111. - A1c 11.8 - pt is not well controlled. Will titrate insulin based on requirement from SSI - SSI and hypoglycemia protocol ordered. Hypothyroidism - TSH WNL - Resume home medications HTN - Resume home medications HLD - Resume home medications Fluids: SL Code Status: Full VTE PPx: Lovenox Dispo: [facility], inpatient. Likely LOS > 48 hours pending culture results. Addendum - Attending - Attending Attestation Date/Time: 11/28/19 1201 I personally evaluated the patient and discussed the management with Dr. Guadarrama. I agree with the History, Examination, Assessment and Plan documented above with any addition or exceptions noted below. Patient overall stable. However, there has not been improvement in her cellulitis. CT showed some deep tissue gas representing possible deeper seeded infection. Surgery consult. Continue abx and glycemic control.
[2019-11-28] MEDS: metFORMIN 500 MG TAB PO SCH ×2 (08:10→18:35)
[2019-11-28] MEDS: Benzonatate 100 MG CAP PO SCH ×3 (08:11→22:08)
[2019-11-28] MEDS: Enoxaparin Sodium 40 MG/0.4 ML SYRINGE SC SCH (08:11)
[2019-11-28] MEDS: Citalopram 20 MG TAB PO SCH (08:11)
[2019-11-28] MEDS: Gabapentin 300 MG CAP PO SCH ×3 (08:11→22:08)
[2019-11-28] MEDS: Lisinopril 20 MG TAB PO SCH (08:11)
[2019-11-28] MEDS: Cefepime 2 GM in Sodium Chloride 0.9% 100 ML IVPB SCH (08:11)
[2019-11-28] MEDS: Atorvastatin Calcium 40 MG TAB PO SCH (08:11)
[2019-11-28] MEDS: Insulin Glargine 35 UNITS in Pre-Filled Syringe 1 EACH SC SCH (09:14)
[2019-11-28] MEDS: Vancomycin 1.5 GRAM/300 ML BAG 1.5 GM in Premix Bag 1 BAG IVPB SCH ×2 (09:31→23:10)
[2019-11-28] MEDS ORDERED: Succinylcholine Chloride 20 MG/ML 10 ml SYRINGE FS ONE (11:07)
[2019-11-28] MEDS ORDERED: Dexamethasone 20 MG/5 ML VIAL ONE (11:07)
[2019-11-28] MEDS ORDERED: Glycopyrrolate 0.2 MG/ML 5 ML SYRINGE ONE (11:07)
[2019-11-28] MEDS ORDERED: PHENYLEPHRINE-NS 100 MCG/ML 10 ML SYRINGE ONE (11:07)
[2019-11-28] MEDS ORDERED: Rocuronium Bromide 10 MG/ML (10ML VIAL) ONE (11:07)
[2019-11-28] MEDS ORDERED: Lidocaine 1% PF 5 ML VIAL ONE (11:07)
[2019-11-28] MEDS ORDERED: Ondansetron PF 4 MG/2 ML Vial ONE (11:07)
[2019-11-28] MEDS ORDERED: PROPOFOL 200 MG/20 ML VIAL ONE (11:07)
[2019-11-28] MEDS: Sodium Chloride 0.9% 1,000 ML IV SCH ×2 (11:46→22:00)
--- NOTE | 2019-11-28 13:48 | CON ---
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 She presented to the emergency room, 11/25/2019, and had a temperature of 102.7 degrees, discovered there that she had a foreign body in her foot, glass, plantar aspect beneath the third toe underlying the metatarsophalangeal joint of the third toe. She is morbidly obese 117 kg diabetic with hypertension and elevated cholesterol. Blood cultures are negative to date. Wound has not been cultured. She has been placed on intravenous antibiotics, vancomycin and cefepime. She had a foot x-ray, November 25, 2019, demonstrating the foreign body in the plantar aspect of the foot without evidence of osteomyelitis and air was seen in the soft tissue on the plantar side of the foot near the third toe. The patient underwent a repeat x-ray foreign body was removed and no remaining foreign body was noted. The patient was hospitalized and it was noted that her foot was clinically worse, although she has been afebrile. A CAT scan was obtained yesterday, right foot, at noon, revealing soft tissue gas plantar to the level of the proximal phalanx of the second, third, and fourth toes with associated small plantar open wound. Small vessel vascular calcifications were noted. The patient's white count has fallen from 16 to 13. Renal function is normal. I have been asked to see her regarding her right diabetic right foot infection. The patient in addition has had abdominal pain for the past several months. This was right upper quadrant pain. She was seeing the [facility] physician's office a month ago complaining of this. She continued to complain of this in this hospitalization and an ultrasound of abdomen obtained, revealing gallstones and sludge and normal bile duct caliber 3 mm. The patient states she has been having some nausea with continuous pain. She is tender to palpation. The patient unfortunately ate at 9 a.m. this morning. ALLERGIES: NONE. TOBACCO: None. ALCOHOL: None. MEDICATIONS: At home; 1. Insulin 30 units a.m. 2. Lisinopril 40 mg a day. 3. Celexa 20 mg a day. 4. Atorvastatin 40 mg a day. 5. Metformin 1000 mg b.i.d. 6. Levothyroxine 300 mcg daily. PAST SURGICAL HISTORY: Total abdominal hysterectomy, bilateral salpingo-oophorectomy, cataract surgery. PAST MEDICAL HISTORY: Morbid obesity, 5 feet 5 inches, 264 pounds, 43 BMI, insulin-dependent diabetes mellitus, hypertension, elevated cholesterol. REVIEW OF SYSTEMS: Ten-point noncontributory. FAMILY HISTORY: Noncontributory, except for diabetes and hypertension. PHYSICAL EXAMINATION: VITAL SIGNS: Height 5 feet 5 inches, 264 pounds, 43 BMI, blood pressure 152/88, heart rate 75, respiratory rate 20. HEAD, EYES, EARS, NOSE, AND THROAT: Unremarkable. LUNGS: Clear to auscultation. CARDIAC: Regular rate and rhythm. No murmur or gallop. ABDOMEN: Soft, obese. Tenderness in the right upper quadrant. No evident hernia. EXTREMITIES: Palpable femoral, popliteal, posterior tibial pulses by feet. Over the dorsum of the right foot, there is cellulitis. There is a puncture wound in the plantar aspect of her right foot underlying the third metatarsophalangeal joint. The second toe is dark and discolored. There is purulent discharge around the third toe and second toe. Inspection of the web spaces between the second and third toes, there is blistering of the skin, plantar and dorsally. As noted above, cellulitis and discoloration of the dorsum of the foot to the ankle. ASSESSMENT/PLAN: 1. Diabetic right foot infection related to foreign body, which has been removed in the emergency room. The patient is unaware of this foreign body until she presented to the emergency room. It was discovered on exam in Radiology. Radiology has confirmed removal of this piece of glass. Plan and recommendation would be incision and drainage, amputation of toes as indicated. She may require amputation of the second or third toe. She will need wound care with wound VAC likely applied. Healing by secondary intention is indicated. Continue with some intravenous antibiotics. 2. Symptomatic gallstone/sludge. Would recommend laparoscopic video cholecystectomy. She is tender and has cholecystitis. Liver function tests are normal. Bile duct caliber is normal. Cholangiograms were not indicated. Risks and benefits, including infection, bleeding, visceral and biliary injury discussed. She consents. 3. Morbid obesity. 4. Metabolic syndrome. 5. Insulin-dependent diabetes mellitus. 6. Hypertension. 7. Neuropathy. Job ID: [id number]
[2019-11-28] MEDS ORDERED: Fentanyl 100 MCG/2 ML VIAL ONE ×2 (16:29→19:07)
[2019-11-28] MEDS ORDERED: Lidocaine 1% w/Epinephrine 1:100K 20 ML VIAL ONE (17:05)
[2019-11-28] MEDS ORDERED: Bupivacaine PF 0.5% 30 ML VIAL ONE ×2 (17:05→17:22)
[2019-11-28] MEDS ORDERED: Acetaminophen 500 MG TAB PO PRN (18:09)
[2019-11-28] MEDS ORDERED: traMADol HCl 50 MG TAB PO PRN ×2 (18:09)
[2019-11-28] MEDS ORDERED: Ibuprofen 600 MG TAB PO PRN (18:09)
[2019-11-28] MEDS ORDERED: Ondansetron HCl/PF 4 MG/2 ML Vial IVP PRN (18:48)
[2019-11-28] MEDS ORDERED: Promethazine HCl 25 MG/ML VIAL IM PRN (18:48)
[2019-11-28] MEDS ORDERED: Promethazine HCl 25 MG/ML VIAL SLOW IVP PRN (18:48)
[2019-11-28] MEDS ORDERED: HYDROmorphone 2 MG/ML VIAL SLOW IVP PRN (18:48)
[2019-11-28] MEDS ORDERED: SUGAMMADEX SODIUM 200 MG/2 ML VIAL ONE (19:13)
[2019-11-28] MEDS ORDERED: Clindamycin/D5W 900 MG in Premix Bag 1 BAG IVPB SCH (20:00)
--- NOTE | 2019-11-28 20:23 | OP ---
DATE OF PROCEDURE: 11/28/2019 PREOPERATIVE DIAGNOSES: 1. Morbid obesity, 43 BMI. 2. Diabetic. 3. Chronic and acute cholecystitis, cholelithiasis. 4. Metabolic syndrome. 5. Diabetic, necrotizing infection in right foot after a puncture wound in plantar foot, unknown period of time ago. POSTOPERATIVE DIAGNOSES: 1. Morbid obesity, 43 BMI. 2. Diabetic. 3. Chronic and acute cholecystitis, cholelithiasis. 4. Metabolic syndrome. 5. Diabetic, necrotizing infection in right foot after a puncture wound in plantar foot, unknown period of time ago. PROCEDURES PERFORMED: Laparoscopic video cholecystectomy. Amputation of right second, third, and fourth toes and metatarsals, noting excellent blood supply, but necrotizing infection. Culture submitted. Wound left open for healing by secondary intention, wound VAC to be applied tomorrow. Note, the patient in preoperative holding, evaluated by Anesthesia and witnessed to be coughing. From this point on, the patient had COVID testing and was treated with precautions. Of note is that 3 days ago when she was admitted, chest x-ray was normal and the patient and daughter both state the patient has not been coughing, has not had problems with cough. DESCRIPTION OF PROCEDURE: The patient was taken to the operating room, where under general anesthesia, abdomen was prepared with ChloraPrep and draped in routine fashion. Local anesthetic 0.5% Marcaine with epinephrine infiltrated in skin and subcutaneous tissue about the operative site. Infraumbilical incision made, pneumoperitoneum to 15 mmHg obtained with a Veress needle, replaced with a 5 port and laparoscope inserted. Right lateral subxiphoid incision made and an 11 mm port placed and right subcostal incision made in midclavicular anterior axillary line and 5 port placed. Liver was slightly fatty. Gallbladder was acutely inflamed, thickened, edematous. Fundus was grasped at the cephalad, infundibulum grasped and reflected laterally. Cystic artery and duct dissected free. Critical view obtained. Cystic artery and duct doubly clipped proximally, divided, and gallbladder dissected free from liver bed, obtained good hemostasis prior to division of final peritoneal attachments. Gallbladder and contents and sludge removed, submitted to Pathology. Good hemostasis ensured with cautery. Irrigant and pneumoperitoneum evacuated. All instruments were removed. All skin incisions were approximated with interrupted subdermal 4-0 Monocryl and [place] glue applied. Right lower extremity was prepared with ChloraPrep and draped in routine fashion. The patient's foot was evaluated, blistered skin was removed from the web space between the first and second toes and the second and third toes. There was a puncture wound beneath the third toe close to the second toe metatarsophalangeal joint in the area of plantar that extended over the dorsum of the foot. I removed the blistered skin and removed macerated purulent material from the underlying layers. Opening was made between the second and third toes, web space, and there was a necrotizing infection extending over to the fourth toe. This extended proximally to the metatarsal. For this reason, as all the soft tissues were necrotic and foul smelling, cultures were submitted and amputation of the second, third, and fourth toes and metatarsals, metatarsal transected with a bone cutter and resected proximally with a rongeur. Good hemostasis, pulsatile bleeding obtained with cautery. Good hemostasis obtained. Connective tissue, cartilage, tendons resected sharply proximally, remaining tissue was healthy. Wound irrigated. Good hemostasis noted. Gauze dressing applied and wound VAC will be applied tomorrow. Job ID: [id number]
[2019-11-28] MEDS: Clindamycin/D5W 900 MG in Premix Bag 1 BAG IVPB SCH (22:12)
[2019-11-29] MEDS: Cefepime 2 GM in Sodium Chloride 0.9% 100 ML IVPB SCH ×4 (00:48→23:55)
[2019-11-29 05:22] LABS: #Eosinphils 0.1 thou/uL (0.0-0.7); #Lymphocytes 0.9 thou/uL (1.20-3.40); #Monocytes 0.9 thou/uL (0.11-0.59); #Neutrophils 13.4 thou/uL (1.40-6.50); %Eosinophils 0.4 % (0.0-10.0); %Lymphocytes 5.6 % (21.0-51.0); %Monocytes 5.6 % (0.0-10.0); %Neutrophils 88.4 % (42.0-75.0); Hemoglobin 9.9 g/dL (12.0-16.0); Mean Corpuscular HGB CONC 32.4 g/dL (32.0-36.0); Mean Corpuscular Hemoglobin 29.6 pg (27.0-31.0); Mean Corpuscular Volume 91.5 fL (78.0-98.0); Platelet Count 262 thou/uL (130-400); RBC Distribution Width 10.9 % (11.5-14.5); Red Blood Cell (RBC) Count 3.33 mill/uL (4.20-5.40); White Blood Cell (WBC) Count 15.2 thou/uL (4.8-10.8)
[2019-11-29] MEDS: Levothyroxine Sodium 100 MCG TAB PO SCH (05:42)
[2019-11-29] MEDS: Clindamycin/D5W 900 MG in Premix Bag 1 BAG IVPB SCH ×3 (05:42→22:28)
[2019-11-29 05:50] LABS: ALT (SGPT) 27 U/L (8-55); AST (SGOT) 58 U/L (5-34); Alkaline Phosphatase 150 U/L (40-110); Anion Gap 15 mmol/L (10-20); BUN (Urea Nitrogen) 13 mg/dL (9.8-20.1); Bilirubin, Total 0.8 mg/dL (0.2-1.2); Calc. Creatinine Clearance 138 mL/min (70-130); Calcium 8.6 mg/dL (7.8-10.44); Carbon Dioxide 19 mmol/L (22-29); Chloride 105 mmol/L (98-107); Estimated GFR-MDRD 71; Globulin 3.5 g/dL (2.4-3.5); Glucose 163 mg/dL (70-105); Potassium 3.7 mmol/L (3.5-5.1); Protein, Total 6.5 g/dL (6.0-8.3); Sodium 135 mmol/L (136-145)
--- NOTE | 2019-11-29 06:50 | PDOC.FM ---
- Subjective Subjective: Pt is doing well today. She has ambulated after her surgery. She denies fever, chills. She has a chronic dry cough. Placed on PUI floor. Pending COVID test. - Objective Vital Signs & Weight: Vital Signs (12 hours) Temp Pulse Resp BP BP Pulse Ox 11/29/19 04:00 98.3 F 77 17 139/65 93 L 11/29/19 00:00 99.3 F 82 18 161/82 H 93 L 11/28/19 20:30 84 20 149/72 H 98 11/28/19 20:00 98 Weight Admit Weight 119.748 kg Weight 119.884 kg I&O: 11/27/19 11/28/19 11/29/19 06:59 06:59 06:59 Intake Total 1220 Balance 1220 Result Diagrams: 11/29/19 04:51 11/29/19 04:51 Phys Exam - Physical Examination Constitutional: NAD HEENT: PERRLA, moist MMs Neck: no JVD, full ROM Respiratory: no wheezing, clear to auscultation bilateral Cardiovascular: RRR, no significant murmur Gastrointestinal: soft, positive bowel sounds RLE wrapped w/o wound vac at this time Neurological: non-focal, normal sensation Psychiatric: normal affect, A&O x 3 Dx/Plan (1) Cellulitis Code(s): L03.90 - CELLULITIS, UNSPECIFIED Status: Acute Qualifiers: Site of cellulitis: extremity Site of cellulitis of extremity: upper extremity Laterality: left Qualified Code(s): L03.114 - Cellulitis of left upper limb (2) Hyperglycemia due to type 2 diabetes mellitus Code(s): E11.65 - TYPE 2 DIABETES MELLITUS WITH HYPERGLYCEMIA Status: Acute (3) Hyperlipidemia Code(s): E78.5 - HYPERLIPIDEMIA, UNSPECIFIED Status: Chronic (4) Hypertension Code(s): I10 - ESSENTIAL (PRIMARY) HYPERTENSION Status: Chronic (5) Hypothyroidism Code(s): E03.9 - HYPOTHYROIDISM, UNSPECIFIED Status: Chronic (6) RUQ abdominal pain Code(s): R10.11 - RIGHT UPPER QUADRANT PAIN Status: Acute - Plan Plan: # Sepsis 2/2 R Diabetic Foot Infection s/p debridement and resection of 2-4 metatarsals - PT/OT consult - pending home discharge rec's - Continue IV abx today - Wound care consulted, requires wound vac - Blood cultures pending # Cholelithiasis w/ biliary colic s/p cholecystectomy - pain management per surgical team - advance diet as tolerated # DURAN - resolved - Improved with fluids # DM II - Increase home Lantus to 35 U qam. Monitor overnight. Her actual home dose is 35 U BID. Will not increase as her fasting this am was 111. She likely consumes a greater amount of carbs in the outpt setting causing a decrease in insuling required this visit. - A1c 11.8 - pt is not well controlled. Will titrate insulin based on requirement from SSI - SSI and hypoglycemia protocol ordered. # Normocytic Anemia - stable, likely secondary to anemia of chronic disease - pending labs # Hypothyroidism - TSH WNL - Resume home medications # HTN - Resume home medications # HLD - Resume home medications # Cough - anaesthesia concerned for cough, pt COVID swabbed last night. Transferred to COVID floor. Pending results and will transfer back to medical vs surgical floor. Fluids: SL Code Status: Full VTE PPx: Lovenox Dispo: [facility], inpatient. Likely LOS > 48 hours pending culture results. Addendum - Attending - Attending Attestation Date/Time: 11/29/19 1664 I personally evaluated the patient and discussed the management with Dr. Guadarrama. I agree with the History, Examination, Assessment and Plan documented above with any addition or exceptions noted below. Patient doing well. S/P lap kike and partial foot amputation. Continue abx. Surgery on board, needs wound vac and wound care. COVID swab pending at the behest of anesthesia though her symptoms were related to her infection.
[2019-11-29] MEDS: Insulin Glargine 35 UNITS in Pre-Filled Syringe 1 EACH SC SCH (08:08)
[2019-11-29] MEDS: Benzonatate 100 MG CAP PO SCH ×3 (08:09→20:37)
[2019-11-29] MEDS: Enoxaparin Sodium 40 MG/0.4 ML SYRINGE SC SCH (08:09)
[2019-11-29] MEDS: Polyethylene Glycol 3350 17 GM Packet PO SCH (08:09)
[2019-11-29] MEDS: metFORMIN 500 MG TAB PO SCH ×2 (08:09→16:27)
[2019-11-29] MEDS: Citalopram 20 MG TAB PO SCH (08:09)
[2019-11-29] MEDS: Atorvastatin Calcium 40 MG TAB PO SCH (08:09)
[2019-11-29] MEDS: Gabapentin 300 MG CAP PO SCH ×3 (08:09→20:37)
[2019-11-29] MEDS: Lisinopril 20 MG TAB PO SCH (08:10)
[2019-11-29 09:42] LABS: Vancomycin, Trough 21.2 ug/mL
[2019-11-29 09:51] LABS: Iron 25 ug/dL (50-170); Iron Binding Capacity, Total 201 mcg/dL (265-497)
[2019-11-29] MEDS: Sodium Chloride 0.9% 1,000 ML IV SCH ×2 (10:43→17:39)
[2019-11-29] MEDS ORDERED: Vancomycin HCl 1.25 GM in Sodium Chloride 0.9% 250 ML 250 ML IVPB SCH (11:00)
[2019-11-29] MEDS: Vancomycin 1.5 GRAM/300 ML BAG 1.5 GM in Premix Bag 1 BAG IVPB SCH (11:23)
[2019-11-29] MEDS: Vancomycin HCl 1.25 GM in Sodium Chloride 0.9% 250 ML 250 ML IVPB SCH (13:06)
[2019-11-29] MEDS: HumaLOG 300 UNITS/3 ML VIAL SC PRN ×2 (14:01→17:59)
--- NOTE | 2019-11-29 14:48 | PRG ---
DATE OF SERVICE: 11/29/2019 SUBJECTIVE: Follow up after laparoscopic cholecystectomy yesterday and amputation of toes 2, 3, 4 for necrotizing diabetic infection, right foot. The patient reports very little pain. She reports that she has had fullness and indigestion for some time, and she is still feeling that. She is diabetic, metabolic syndrome, morbidly obese, BMI of 44. Some of her problems could be related to gastroparesis, although she did have cholecystitis. At this point, if this does not improve, to consider EGD next week after COVID results. The patient yesterday preoperatively was interviewed by Anesthesia, who stated that she was coughing. When asked the daughter if the patient was coughing during the anesthesia interview, the daughter says the patient was clearing her throat. The patient has not had a cough prior to this hospitalization. During this hospitalization or postoperatively, her chest x-ray 11/25/2019 is normal. Her fever was from her diabetic foot infection. Nonetheless, we are awaiting COVID results. OBJECTIVE: VITAL SIGNS: Temperature 99 degrees, heart rate 76, and blood pressure 137/72. LUNGS: Clear to auscultation. No wheezing. CARDIAC: Regular rate and rhythm without murmur or gallop. ABDOMEN: Soft, nontender. EXTREMITIES: Wound VAC, right foot. LABORATORY DATA: White count 15, hemoglobin 9.9. Liver function tests are normal. Basic metabolic profile is normal. ASSESSMENT AND PLAN: 1. Cholecystitis, acute on chronic, status post cholecystectomy. No further laboratory followup needed. Diet and activity as tolerated. 2. Upper abdominal bloating. Could consider upper endoscopy next week if this does not improve over the next few days. 3. Necrotizing diabetic right foot infection, status post amputations right toes 2, 3, and 4 and metatarsals with wound healing by secondary intention to wound VAC in place. Continue intravenous antibiotics. Cultures obtained intraoperatively. Await these results. Adjust antibiotics per culture results. Wound Care will change her right foot VAC dressing over the weekend. I will view the wound next week when they change it. The patient should avoid pressure on her heel to avoid heel decubitus during this hospitalization. She should be up in a chair 2 hours after every meal. She can weightbear as tolerated right foot. I have asked employment case manager arrange outpatient wound care. Considering her indigestion status, she will need to have arranged [facility] wound care [facility] outpatient. Wound Care will arrange outpatient wound VAC [facility]. She can be changed to oral antibiotics once culture results are back. Probably Augmentin 875 p.o. b.i.d. for 2 weeks. I will see her next week when they change her dressings. I will then follow her up as an outpatient in my office 2 to 3 weeks post discharge. Job ID: [id number]
[2019-11-29 17:29] LABS: SARS-CoV-2 MS2 Positive; SARS-CoV-2 N Gene Negative; SARS-CoV-2 S Gene Negative; SARS-CoV-2 orf1ab Negative
[2019-11-30] MEDS: Vancomycin HCl 1.25 GM in Sodium Chloride 0.9% 250 ML 250 ML IVPB SCH ×2 (00:38→11:00)
[2019-11-30] MEDS: Sodium Chloride 0.9% 1,000 ML IV SCH ×3 (00:38→23:16)
[2019-11-30] MEDS: Levothyroxine Sodium 100 MCG TAB PO SCH (05:46)
[2019-11-30] MEDS: Clindamycin/D5W 900 MG in Premix Bag 1 BAG IVPB SCH ×3 (05:47→21:19)
--- NOTE | 2019-11-30 06:41 | PDOC.FM ---
- Subjective Subjective: Pt has not had a BM since her procedure. She has been eating a CC diet. She denies flatus. Endorsed abdominal distention w/o pain. Her RLE pain is controlled. Wound vac in place. CM working with pt assist with outpt wound care. - Objective Vital Signs & Weight: Vital Signs (12 hours) Temp Pulse Resp BP Pulse Ox 11/30/19 04:00 97.9 F 91 18 125/74 92 L 11/29/19 23:53 98.8 F 72 18 98/63 93 L 11/29/19 20:31 101/65 11/29/19 20:00 97 11/29/19 19:50 98.3 F 72 18 99/60 97 Weight Admit Weight 119.748 kg Weight 119.884 kg I&O: 11/28/19 11/29/19 11/30/19 06:59 06:59 06:59 Intake Total 450 Balance 450 Result Diagrams: 11/30/19 08:53 11/29/19 04:51 Phys Exam - Physical Examination Constitutional: NAD HEENT: PERRLA, moist MMs Neck: no JVD, full ROM Respiratory: no wheezing, clear to auscultation bilateral Cardiovascular: RRR, no significant murmur Gastrointestinal: soft, non-tender, positive bowel sounds mild distention to abdomen but not tight Musculoskeletal: no edema wound vac in place to RLE Dx/Plan (1) Cellulitis Code(s): L03.90 - CELLULITIS, UNSPECIFIED Status: Acute Qualifiers: Site of cellulitis: extremity Site of cellulitis of extremity: upper extremity Laterality: left Qualified Code(s): L03.114 - Cellulitis of left upper limb (2) Hyperglycemia due to type 2 diabetes mellitus Code(s): E11.65 - TYPE 2 DIABETES MELLITUS WITH HYPERGLYCEMIA Status: Acute (3) Hyperlipidemia Code(s): E78.5 - HYPERLIPIDEMIA, UNSPECIFIED Status: Chronic (4) Hypertension Code(s): I10 - ESSENTIAL (PRIMARY) HYPERTENSION Status: Chronic (5) Hypothyroidism Code(s): E03.9 - HYPOTHYROIDISM, UNSPECIFIED Status: Chronic (6) RUQ abdominal pain Code(s): R10.11 - RIGHT UPPER QUADRANT PAIN Status: Acute - Plan Plan: # R Diabetic Foot Infection s/p debridement and resection of 2-4 metatarsals - PT/OT consult - pending home discharge rec's - Continue IV abx today - surgery will keep until next week; once sensitivities come back can switch pt to oral abx - Wound care consulted, requires wound vac - Blood cultures negative # Sepsis - resolved # Cholelithiasis w/ biliary colic s/p cholecystectomy - pain management per surgical team - advance diet as tolerated # DURAN - resolved - Improved with fluids # DM II - Increase home Lantus to 35 U qam. Monitor overnight. Her actual home dose is 35 U BID. Will not increase as her fasting this am was 111. She likely consumes a greater amount of carbs in the outpt setting causing a decrease in insuling required this visit. - A1c 11.8 - pt is not well controlled. Will titrate insulin based on requirement from SSI - SSI and hypoglycemia protocol ordered. # Normocytic Anemia - stable, anemia of chronic disease and iron deficiency anemia # Hypothyroidism - TSH WNL - Resume home medications # HTN - Resume home medications # HLD - Resume home medications # Cough - COVID negative Fluids: SL Code Status: Full VTE PPx: Lovenox Dispo: [facility], inpatient. > 48 hours pending culture results and IV abx. Addendum - Attending - Attending Attestation Date/Time: 11/30/19 1300 I personally evaluated the patient and discussed the management with Dr. Guadarrama. I agree with the History, Examination, Assessment and Plan documented above with any addition or exceptions noted below.
[2019-11-30] MEDS: Citalopram 20 MG TAB PO SCH (08:47)
[2019-11-30] MEDS: metFORMIN 500 MG TAB PO SCH ×2 (08:47→17:20)
[2019-11-30] MEDS: Polyethylene Glycol 3350 17 GM Packet PO SCH (08:47)
[2019-11-30] MEDS: Benzonatate 100 MG CAP PO SCH ×3 (08:47→20:47)
[2019-11-30] MEDS: Gabapentin 300 MG CAP PO SCH ×3 (08:47→20:47)
[2019-11-30] MEDS: Atorvastatin Calcium 40 MG TAB PO SCH (08:48)
[2019-11-30] MEDS: Insulin Glargine 35 UNITS in Pre-Filled Syringe 1 EACH SC SCH (08:48)
[2019-11-30] MEDS: Enoxaparin Sodium 40 MG/0.4 ML SYRINGE SC SCH (08:48)
[2019-11-30 09:04] LABS: #Eosinphils 0.3 thou/uL (0.0-0.7); #Lymphocytes 1.6 thou/uL (1.20-3.40); #Monocytes 1.2 thou/uL (0.11-0.59); #Neutrophils 7.6 thou/uL (1.40-6.50); %Basophils 0.4 % (0.0-1.0); %Eosinophils 2.8 % (0.0-10.0); %Monocytes 10.8 % (0.0-10.0); %Neutrophils 70.9 % (42.0-75.0); Hemoglobin 9.6 g/dL (12.0-16.0); Mean Corpuscular HGB CONC 32.2 g/dL (32.0-36.0); Mean Corpuscular Hemoglobin 29.3 pg (27.0-31.0); Mean Corpuscular Volume 90.8 fL (78.0-98.0); Platelet Count 304 thou/uL (130-400); Red Blood Cell (RBC) Count 3.28 mill/uL (4.20-5.40); White Blood Cell (WBC) Count 10.8 thou/uL (4.8-10.8)
[2019-11-30] MEDS: Cefepime 2 GM in Sodium Chloride 0.9% 100 ML IVPB SCH ×2 (11:00→23:16)
[2019-11-30] MEDS: Senokot S 8.6-50 MG TAB PO SCH ×2 (11:00→20:47)
[2019-11-30] MEDS ORDERED: Ascorbic Acid 500 mg Chewable Tablet PO SCH (21:00)
[2019-12-01] MEDS: Vancomycin HCl 1.25 GM in Sodium Chloride 0.9% 250 ML 250 ML IVPB SCH (00:05)
--- NOTE | 2019-12-01 04:40 | PDOC.FM ---
- Subjective Subjective: Patient was resting comfortably in her bed, about to start breakfast, at the time of evaluation. She denied any acute overnight events, to include chest pain , SOB, fevers, nausea or vomiting. - Objective Vital Signs & Weight: Vital Signs (12 hours) Temp Pulse Resp BP Pulse Ox 11/30/19 20:05 92 L 11/30/19 20:00 98.4 F 75 18 138/82 92 L Weight Admit Weight 119.748 kg Weight 119.884 kg I&O: 11/29/19 11/30/19 12/01/19 06:59 06:59 06:59 Intake Total 450 Balance 450 Result Diagrams: 11/30/19 08:53 11/29/19 04:51 Phys Exam - Physical Examination Constitutional: NAD HEENT: moist MMs, oral pharynx no lesions Neck: supple, full ROM Respiratory: no wheezing, no rales, no rhonchi, clear to auscultation bilateral Cardiovascular: RRR, no significant murmur, no rub Gastrointestinal: soft, non-tender, no distention, positive bowel sounds Musculoskeletal: no edema, pulses present Neurological: moves all 4 limbs Psychiatric: normal affect Dx/Plan (1) DURAN (acute kidney injury) Code(s): N17.9 - ACUTE KIDNEY FAILURE, UNSPECIFIED Status: Acute (2) Cellulitis Code(s): L03.90 - CELLULITIS, UNSPECIFIED Status: Acute Qualifiers: Site of cellulitis: extremity Site of cellulitis of extremity: upper extremity Laterality: left Qualified Code(s): L03.114 - Cellulitis of left upper limb (3) Hyperglycemia due to type 2 diabetes mellitus Code(s): E11.65 - TYPE 2 DIABETES MELLITUS WITH HYPERGLYCEMIA Status: Acute (4) Diabetes mellitus type 2 Code(s): E11.9 - TYPE 2 DIABETES MELLITUS WITHOUT COMPLICATIONS Status: Chronic (5) Hyperlipidemia Code(s): E78.5 - HYPERLIPIDEMIA, UNSPECIFIED Status: Chronic (6) Hypertension Code(s): I10 - ESSENTIAL (PRIMARY) HYPERTENSION Status: Chronic (7) Hypothyroidism Code(s): E03.9 - HYPOTHYROIDISM, UNSPECIFIED Status: Chronic (8) Normocytic anemia Code(s): D64.9 - ANEMIA, UNSPECIFIED Status: Chronic (9) Sepsis Code(s): A41.9 - SEPSIS, UNSPECIFIED ORGANISM Status: Acute - Plan Plan: Patient is a 59 y/o female with a PMH significant for DM2 who presented to the ED for evaluation of foot pain. # R Diabetic Foot Infection, s/p Debridement and Amputation of Metatarsals 2-4 -PT/OT: Consulted, awaiting DC recs for Wound Vac -Patient has outpatient appointment with Wound Care on 12/03 -Patient currently on IV Cefepime, Clindamycin and Vancomycin - will likely transition to PO later today based on sensitivities -Wound Care: Consulted, recommended wound Wound Vac -BCx: Negative # Sepsis, resolved -See #1 # Cholelithiasis w/ Biliary Colic, s/p Cholecystectomy -Pain management per GenSurg, recs appreciated -Will continue to advance diet as tolerated # DURAN, resolved -Cr: 1.27 on admission - down to 0.82 on 11/28 -Improved with IVF - currently maintaining adequate PO hydration # DM II, poorly controlled -Patient takes Lantus 35u BID at home but has been on Lantus 35u QAM with SSI -HgA1c: 11.8 -SSI -Hypoglycemia Protocol -Patient was counseled that she will require close follow-up of her POC Glucose readings, as her diet will likely change following DC # Normocytic Anemia -Stable - likely Anemia of Chronic Disease / Iron Deficiency Anemia # Hypothyroidism -TSH: WNL -Currently on Levothryroxine 125 mcg QAM - will recommend recheck of TSH in 4- 6W w/ PCP # HTN -BP at goal - will resume home antihypertensive regimen # HLD -Will resume home medication regimen # Cough -Questionable cough during Anesthesia eval -COVID: Negative PCP: [facility] Code: Full Diet: HH / CC Fluids: SL VTE PPx: Lovenox Activity: Ad zenon Dispo: Patient is currently stable on the Medical Floor receiving IV ABx s/p resolution of Sepsis 2/2 Diabetic Foot Infection that required multiple amputations. Will continue IV ABx regimen as per above and likely transition to PO ABx later today. Case Management consulted for Wound Vac, recs appreciated. Will psychotherapist counselor patient extensively about need for great blood glucose control and home monitoring of POC Glucose readings, as well as outpatient follow-up of TSH following change in Levothyroxine regimen. Expected LOS > 48H. Addendum - Attending - Attending Attestation Date/Time: 12/01/19 1126 I personally evaluated the patient and discussed the management with Dr. Baugh. I agree with the History, Examination, Assessment and Plan documented above with any addition or exceptions noted below. Patient overall stable. Wound care to evaluate wound today. CM for outpatient wound vac and wound care. Continue PO abx. Blood sugar control. Will need close follow up upon discharge.
[2019-12-01] MEDS: Clindamycin/D5W 900 MG in Premix Bag 1 BAG IVPB SCH (05:23)
[2019-12-01] MEDS: Levothyroxine Sodium 125 MCG TAB PO SCH (05:23)
[2019-12-01] MEDS: Atorvastatin Calcium 40 MG TAB PO SCH (08:29)
[2019-12-01] MEDS: Gabapentin 300 MG CAP PO SCH ×3 (08:29→20:42)
[2019-12-01] MEDS: Senokot S 8.6-50 MG TAB PO SCH ×2 (08:29→20:43)
[2019-12-01] MEDS: Citalopram 20 MG TAB PO SCH (08:29)
[2019-12-01] MEDS: Enoxaparin Sodium 40 MG/0.4 ML SYRINGE SC SCH (08:30)
[2019-12-01] MEDS: Ascorbic Acid 500 mg Chewable Tablet PO SCH (08:30)
[2019-12-01] MEDS: Insulin Glargine 35 UNITS in Pre-Filled Syringe 1 EACH SC SCH (08:30)
[2019-12-01] MEDS: metFORMIN 500 MG TAB PO SCH ×2 (08:30→17:33)
[2019-12-01] MEDS: Benzonatate 100 MG CAP PO SCH ×3 (08:30→20:43)
[2019-12-01] MEDS: Ferrous Sulfate 325 MG TAB PO SCH (08:30)
[2019-12-01] MEDS: Polyethylene Glycol 3350 17 GM Packet PO SCH (08:31)
[2019-12-01] MEDS ORDERED: Amoxicillin/Potassium Clav 875 MG TAB PO SCH (09:45)
[2019-12-01] MEDS: Sodium Chloride 0.9% 1,000 ML IV SCH (11:54)
[2019-12-01] MEDS: Amoxicillin/Potassium Clav 875 MG TAB PO SCH (20:42)
[2019-12-01] MEDS ORDERED: Ondansetron PF 4 MG/2 ML Vial IVP PRN (22:46)
[2019-12-01] MEDS: Ondansetron ODT 4 MG TAB PO PRN (23:08)
--- NOTE | 2019-12-02 05:38 | PDOC.FM ---
- Subjective Subjective: Patient was resting comfortably in bed at the time of evaluation. Patient is Swedish-speaking only, so an assistant manager was used throughout the evaluation. Patient endorsed one episode of nausea overnight that repsonded well to Zofran. She denied any other acute overnight events, to include fevers, chest pain, SOB , ABD pain or diarrhea. - Objective Vital Signs & Weight: Vital Signs (12 hours) Temp Pulse Resp BP Pulse Ox 12/01/19 20:00 95 12/01/19 19:47 98.7 F 78 17 127/74 95 Weight Admit Weight 119.748 kg Weight 119.884 kg I&O: 11/30/19 12/01/19 12/02/19 06:59 06:59 06:59 Intake Total 450 Balance 450 Result Diagrams: 11/30/19 08:53 11/29/19 04:51 Phys Exam - Physical Examination Constitutional: NAD HEENT: PERRLA, moist MMs, sclera anicteric, oral pharynx no lesions Neck: supple, full ROM Respiratory: no wheezing, no rales, no rhonchi, clear to auscultation bilateral Cardiovascular: RRR, no significant murmur, no rub Gastrointestinal: soft, non-tender, no distention, positive bowel sounds Musculoskeletal: no edema, pulses present Neurological: non-focal, moves all 4 limbs Psychiatric: normal affect Deviation from normal: No streaking, erythema or TTP noted in RLE Dx/Plan (1) DURAN (acute kidney injury) Code(s): N17.9 - ACUTE KIDNEY FAILURE, UNSPECIFIED Status: Acute (2) Cellulitis Code(s): L03.90 - CELLULITIS, UNSPECIFIED Status: Acute Qualifiers: Site of cellulitis: extremity Site of cellulitis of extremity: upper extremity Laterality: left Qualified Code(s): L03.114 - Cellulitis of left upper limb (3) Hyperglycemia due to type 2 diabetes mellitus Code(s): E11.65 - TYPE 2 DIABETES MELLITUS WITH HYPERGLYCEMIA Status: Acute (4) Diabetes mellitus type 2 Code(s): E11.9 - TYPE 2 DIABETES MELLITUS WITHOUT COMPLICATIONS Status: Chronic (5) Hyperlipidemia Code(s): E78.5 - HYPERLIPIDEMIA, UNSPECIFIED Status: Chronic (6) Hypertension Code(s): I10 - ESSENTIAL (PRIMARY) HYPERTENSION Status: Chronic (7) Hypothyroidism Code(s): E03.9 - HYPOTHYROIDISM, UNSPECIFIED Status: Chronic (8) Normocytic anemia Code(s): D64.9 - ANEMIA, UNSPECIFIED Status: Chronic (9) Sepsis Code(s): A41.9 - SEPSIS, UNSPECIFIED ORGANISM Status: Acute - Plan Plan: Patient is a 59 y/o female with a PMH significant for DM2 who presented to the ED for evaluation of foot pain. # R Diabetic Foot Infection, s/p Debridement and Amputation of Metatarsals 2-4 -PT/OT: Consulted, awaiting DC recs for Wound Vac -Patient has outpatient appointment with Wound Care on 12/03 -Previously on IV Cefepime, Clindamycin and Vancomycin - currently on Augment 875 mg PO BID per Surgery recs -Wound Care: Consulted, recommended wound Wound Vac - assisting with [employer] application -BCx: Negative # Sepsis, resolved -See #1 # Cholelithiasis w/ Biliary Colic, s/p Cholecystectomy -Pain management per GenSurg, recs appreciated -Will continue to advance diet as tolerated # DURAN, resolved -Cr: 1.27 on admission - down to 0.82 on 11/28 -Improved with IVF - currently maintaining adequate PO hydration # DM II, poorly controlled -Patient takes Lantus 35u BID at home but has been on Lantus 35u QAM with Moderate SSI -HgA1c: 11.8 -Moderate SSI - No required doses within last 24H -Hypoglycemia Protocol -Patient was counseled that she will require close follow-up of her POC Glucose readings, as her diet will likely change following DC # Normocytic Anemia -Stable - likely Anemia of Chronic Disease / Iron Deficiency Anemia # Hypothyroidism -TSH: WNL -Currently on Levothryroxine 125 mcg QAM - will recommend recheck of TSH in 4- 6W w/ PCP # HTN -BP at goal - will resume home antihypertensive regimen # HLD -Will resume home medication regimen # Cough -Questionable cough during Anesthesia eval -COVID: Negative PCP: [facility] Live Code: Full Diet: CC Fluids: SL VTE PPx: Lovenox Activity: Ad zenon Dispo: Patient is currently stable on the Medical Floor receiving PO ABx s/p resolution of Sepsis 2/2 Diabetic Foot Infection that required multiple amputations - currently stable from a medical standpoint. Case Management / Wound Care consulted for Wound Vac, recs appreciated. Will phone counselor patient extensively about need for great blood glucose control and home monitoring of POC Glucose readings, as well as outpatient follow-up of TSH following change in Levothyroxine regimen. Expected LOS < 48H. Addendum - Attending - Attending Attestation Date/Time: 12/02/19 [id number] I personally evaluated the patient and discussed the management with Dr. Baugh. I agree with the History, Examination, Assessment and Plan documented above with any addition or exceptions noted below. Patient overall stable. Continue wound therapy and abx for her foot infection s/ p amputation. Awaiting CM for [facility] wound vac and wound care clinic set up and will be stable for discharge at that time, hopefully tomorrow.
[2019-12-02] MEDS: Levothyroxine Sodium 125 MCG TAB PO SCH (06:17)
[2019-12-02] MEDS: Insulin Glargine 35 UNITS in Pre-Filled Syringe 1 EACH SC SCH (07:53)
[2019-12-02] MEDS: Ferrous Sulfate 325 MG TAB PO SCH (07:53)
[2019-12-02] MEDS: Benzonatate 100 MG CAP PO SCH ×3 (07:54→21:28)
[2019-12-02] MEDS: Atorvastatin Calcium 40 MG TAB PO SCH (07:54)
[2019-12-02] MEDS: Gabapentin 300 MG CAP PO SCH ×3 (07:54→21:28)
[2019-12-02] MEDS: Ascorbic Acid 500 mg Chewable Tablet PO SCH (07:54)
[2019-12-02] MEDS: metFORMIN 500 MG TAB PO SCH ×2 (07:54→16:36)
[2019-12-02] MEDS: Amoxicillin/Potassium Clav 875 MG TAB PO SCH ×2 (07:54→21:28)
[2019-12-02] MEDS: Senokot S 8.6-50 MG TAB PO SCH ×2 (07:55→21:28)
[2019-12-02] MEDS: Citalopram 20 MG TAB PO SCH (07:55)
[2019-12-02] MEDS: Enoxaparin Sodium 40 MG/0.4 ML SYRINGE SC SCH (07:55)
[2019-12-02] MEDS: Polyethylene Glycol 3350 17 GM Packet PO SCH (07:55)
[2019-12-02] MEDS: Ondansetron ODT 4 MG TAB PO PRN (12:09)
--- NOTE | 2019-12-03 06:14 | PDOC.FM ---
- Subjective Subjective: Patient was resting comfortably in bed at the time of evaluation, having just finished her breakfast. She denied any acute overnight events, to include fevers and recurrent RLE pain. - Objective Vital Signs & Weight: Vital Signs (12 hours) Temp Pulse Resp BP Pulse Ox 12/02/19 20:00 97 12/02/19 19:41 98.3 F 78 18 159/82 H 97 Weight Admit Weight 119.748 kg Weight 119.884 kg I&O: 12/01/19 12/02/19 12/03/19 06:59 06:59 06:59 Intake Total 960 Balance 960 Result Diagrams: 11/30/19 08:53 12/03/19 07:32 Phys Exam - Physical Examination Constitutional: NAD HEENT: sclera anicteric, oral pharynx no lesions Neck: supple, full ROM Respiratory: no wheezing, no rales, no rhonchi, clear to auscultation bilateral Cardiovascular: RRR, no significant murmur, no rub Gastrointestinal: soft, non-tender, no distention, positive bowel sounds Musculoskeletal: no edema, pulses present Neurological: non-focal, moves all 4 limbs Psychiatric: normal affect Deviation from normal: No erythema or streaking in RLE. FROM. No TTP. Dx/Plan (1) DURAN (acute kidney injury) Code(s): N17.9 - ACUTE KIDNEY FAILURE, UNSPECIFIED Status: Acute (2) Cellulitis Code(s): L03.90 - CELLULITIS, UNSPECIFIED Status: Acute Qualifiers: Site of cellulitis: extremity Site of cellulitis of extremity: upper extremity Laterality: left Qualified Code(s): L03.114 - Cellulitis of left upper limb (3) Hyperglycemia due to type 2 diabetes mellitus Code(s): E11.65 - TYPE 2 DIABETES MELLITUS WITH HYPERGLYCEMIA Status: Acute (4) Diabetes mellitus type 2 Code(s): E11.9 - TYPE 2 DIABETES MELLITUS WITHOUT COMPLICATIONS Status: Chronic (5) Hyperlipidemia Code(s): E78.5 - HYPERLIPIDEMIA, UNSPECIFIED Status: Chronic (6) Hypertension Code(s): I10 - ESSENTIAL (PRIMARY) HYPERTENSION Status: Chronic (7) Hypothyroidism Code(s): E03.9 - HYPOTHYROIDISM, UNSPECIFIED Status: Chronic (8) Normocytic anemia Code(s): D64.9 - ANEMIA, UNSPECIFIED Status: Chronic (9) Sepsis Code(s): A41.9 - SEPSIS, UNSPECIFIED ORGANISM Status: Acute - Plan Plan: Patient is a 59 y/o female with a PMH significant for DM2 who presented to the ED for evaluation of foot pain. # R Diabetic Foot Infection, s/p Debridement and Amputation of Metatarsals 2-4 -PT/OT: Consulted, awaiting DC recs for Wound Vac -Patient has outpatient appointment with Wound Care on 12/03 -Previously on IV Cefepime, Clindamycin and Vancomycin - currently on Augment 875 mg PO BID per Surgery recs -Wound Care: Consulted, recommended wound Wound Vac - assisting with [employer] ([employer]) application -BCx: Negative # Sepsis, resolved -See #1 # Cholelithiasis w/ Biliary Colic, s/p Cholecystectomy -Pain management per GenSurg, recs appreciated -Will continue to advance diet as tolerated # DURAN, resolved -Cr: 1.27 on admission - down to 0.82 on 11/28 -Improved with IVF - currently maintaining adequate PO hydration # DM II, poorly controlled -Patient takes Lantus 35u BID at home but has been on Lantus 35u QAM with Moderate SSI -HgA1c: 11.8 -Moderate SSI - No required doses within last 24H -Hypoglycemia Protocol -Patient was counseled that she will require close follow-up of her POC Glucose readings, as her diet will likely change following DC # Normocytic Anemia -Stable - likely Anemia of Chronic Disease / Iron Deficiency Anemia # Hypothyroidism -TSH: WNL -Currently on Levothryroxine 125 mcg QAM - will recommend recheck of TSH in 4- 6W w/ PCP # HTN -BP at goal - will resume home antihypertensive regimen # HLD -Will resume home medication regimen # Cough -Questionable cough during Anesthesia eval -COVID: Negative PCP: C[facility]I Live Code: Full Diet: CC Fluids: SL VTE PPx: Lovenox Activity: Ad zenon Dispo: Patient is currently stable on the Medical Floor receiving PO ABx s/p resolution of Sepsis 2/2 Diabetic Foot Infection that required multiple amputations - currently stable from a medical standpoint. Case Management / Wound Care consulted for Wound Vac, recs appreciated. Will chemical dependency counselor patient extensively about need for great blood glucose control and home monitoring of POC Glucose readings, as well as outpatient follow-up of TSH following change in Levothyroxine regimen. Expected LOS < 48H. Addendum - Attending - Attending Attestation Date/Time: 12/03/192126 I personally evaluated the patient and discussed the management with Dr. Baugh I agree with the History, Examination, Assessment and Plan documented above with any addition or exceptions noted below - Patient without complaints. Pain well controlled. Afebrile VSS. A/P: 1) Sepsis secondary to cellulitis resolved. 2) Diabetic foot infection s/p amputation- arrangements for home wound vac as well as outpatient wound care. D/c home today continue po abx. 2) DM type 2 - continue current insulin regimen
[2019-12-03] MEDS: Levothyroxine Sodium 125 MCG TAB PO SCH (06:19)
[2019-12-03] MEDS: Gabapentin 300 MG CAP PO SCH ×2 (07:55→16:19)
[2019-12-03] MEDS: metFORMIN 500 MG TAB PO SCH (07:56)
[2019-12-03] MEDS: Ascorbic Acid 500 mg Chewable Tablet PO SCH (07:56)
[2019-12-03] MEDS: Atorvastatin Calcium 40 MG TAB PO SCH (07:56)
[2019-12-03] MEDS: Ferrous Sulfate 325 MG TAB PO SCH (07:56)
[2019-12-03] MEDS: Benzonatate 100 MG CAP PO SCH ×2 (07:56→16:11)
[2019-12-03] MEDS: Citalopram 20 MG TAB PO SCH (07:57)
[2019-12-03] MEDS: Amoxicillin/Potassium Clav 875 MG TAB PO SCH (07:57)
[2019-12-03] MEDS: Enoxaparin Sodium 40 MG/0.4 ML SYRINGE SC SCH (07:57)
[2019-12-03] MEDS: Polyethylene Glycol 3350 17 GM Packet PO SCH (07:57)
[2019-12-03] MEDS: Senokot S 8.6-50 MG TAB PO SCH (07:57)
[2019-12-03 08:08] LABS: Anion Gap 10 mmol/L (10-20); BUN (Urea Nitrogen) 6 mg/dL (9.8-20.1); Calc. Creatinine Clearance 138 mL/min (70-130); Calcium 8.9 mg/dL (7.8-10.44); Carbon Dioxide 28 mmol/L (22-29); Chloride 105 mmol/L (98-107); Estimated GFR-MDRD 71; Glucose 113 mg/dL (70-105); Potassium 4.2 mmol/L (3.5-5.1); Sodium 139 mmol/L (136-145)
[2019-12-03 08:48] VITALS: BP 159/87; TEMP 98.4
[2019-12-03] MEDS: Insulin Glargine 35 UNITS in Pre-Filled Syringe 1 EACH SC SCH (09:11)
--- NOTE | 2019-12-03 22:47 | DIS ---
DATE OF ADMISSION: 11/25/2019 DATE OF DISCHARGE: 12/03/2019 RESIDENT: Luis Manuel Baugh MD ADMITTING ATTENDING: Bryce Perez MD DISCHARGE ATTENDING: Lexis Villasenor MD CONSULTS: Dr. Adan Clark, General Surgery. PROCEDURES PERFORMED: Chest x-ray indicating no acute findings. Foot x-ray on 11/25/2019 indicating a foreign body within the plantar soft tissues. No evidence of osteomyelitis. Repeat foot x-ray performed on 11/25/2019 demonstrating successful removal of the foreign body. Abdominal ultrasound indicating biliary sludge with evidence of chronic gallbladder dyskinesis and no evidence of acute biliary obstruction. Lower extremity CT scan, which demonstrated evidence for plantar soft tissue gas at the level of proximal phalanges of the 2nd, 3rd, and 4th toes with an associated small plantar open wound. Gas could be related to this open wound. Gas producing infection cannot be excluded. No evidence for drainable abscess. Evidence for some small vessel arterial vascular calcification. Cholecystectomy and amputation of the 2nd, 3rd, and 4th metatarsal on the right lower extremity. PRIMARY DIAGNOSIS: Sepsis secondary to right diabetic foot infection, status post debridement and amputation. SECONDARY DIAGNOSES: Cholelithiasis with biliary colic status post cholecystectomy, acute kidney injury, diabetes type 2, normocytic anemia, hypothyroidism, hypertension, hyperlipidemia. DISCHARGE MEDICATIONS: 1. Atorvastatin 40 mg p.o. daily. 2. Citalopram 20 mg p.o. daily. 3. Levothyroxine 125 mcg p.o. daily. 4. Lisinopril 40 mg p.o. daily. 5. Metformin 1000 mg p.o. b.i.d. 6. Augmentin 875 mg p.o. b.i.d. for 12 days. 7. Vitamin C 500 mg tablet p.o. daily. 8. Ferrous sulfate 325 mg p.o. daily. 9. Insulin glargine 35 units q.a.m. DISCONTINUED MEDICATIONS: 1. Levothyroxine 300 mcg p.o. daily. 2. Insulin glargine 35 units b.i.d. HISTORY OF PRESENT ILLNESS AND HOSPITAL COURSE: The patient is a pleasant 59-year-old female, who presents to the emergency department with chief complaint of right foot pain. The patient states that she started having the pain in her foot at night 3 to 4 days prior. The patient notes that the foot appears swollen and feels heavy. She woke up noting that it also appeared red. She soaked in Epsom salt and water and did not feel better. Her daughter looked at the bottom of her foot and saw cut. However, she does not recall stepping on anything or a previous injury. The patient states she could not feel the cut and did not endorse pain at the time of evaluation. The patient states she has been having numbness in her feet for the past several months for which she takes gabapentin. In the emergency department, she was given 2 L normal saline and started on vancomycin, cefepime, and given a Tdap injection. X-ray was performed, the results of which are mentioned elsewhere. Subsequently, the patient's foreign body was removed and confirmatory x-ray was performed immediately thereafter, the results of which are mentioned elsewhere. The patient was subsequently transferred to the medical floor for ongoing IV antibiotic therapy and surgical evaluation due to the presence of notable gas within the patient's right lower extremity at the 2nd, 3rd, and 4th metatarsals. The decision was made to perform an amputation. Additionally, because of the patient's ongoing biliary colic, the decision was made in order to perform a cholecystectomy. The patient tolerated both procedures well and was eventually transitioned from IV antibiotics to p.o. antibiotics. The patient's condition continued to improve and she subsequently had no pain in her right lower extremity and did not endorse abdominal pain on morning evaluations and tolerated p.o. diet well. As such, the patient was subsequently prepped for discharge. Prior to discharge, the patient's vital signs were recorded as temperature 98.4, pulse 77, respirations 18 per minute, oxygen saturation 95% on room air, blood pressure 159/87. Laboratory analysis revealed a white blood cell count of 10.8 down from a high of 16.7 on presentation, hemoglobin of 9.6, hematocrit 29.8, platelet count of 304. Chem panel revealed a sodium of 139, potassium 4.2, chloride 105, carbon dioxide 28, BUN 6, creatinine 0.82, glucose 114. Hemoglobin A1c 11.8. Lactic acid 1.5, calcium 8.9, iron 25, total iron-binding capacity 201, ferritin 517, total bilirubin 0.8, AST 58, ALT 27, alkaline phosphatase 150. C-reactive protein 16.87, vitamin B12 of 421, folate 16.6, TSH 1.22. Bacterial culture of the patient's foot was performed, which demonstrated three organisms notable for enterobacter E coli and enterococcus faecalis. The patient's antibiotic regimen was subsequently tailored according with. DISPOSITION: Stable. DISCHARGE INSTRUCTIONS: 1. Location: Home. 2. Diet: Carbohydrate conscious. 3. Activity: No restrictions. 4. Followup: The patient was approved for an outpatient wound VAC through a [facility] program and was subsequently encouraged to follow up for ongoing wound care with her next appointment occurring on 12/04/2019. Additionally, the patient was encouraged to follow up with the general surgeon associated with her care during her hospitalization, Dr. Adan Clark, within 2 to 3 weeks. Lastly, the patient was encouraged to follow up with her primary care provider at [facility] within 7 days in order to discuss her most recent hospitalization as well as ongoing need to titrate her hypothyroidism and diabetes type 2 medication regimen as the patient was only requiring a minimal amount of levothyroxine and was only requiring approximately half of her daily Lantus dose in order to maintain acceptable blood glucose levels. Additionally, the patient was encouraged to follow up with the primary care provider in 4 to 6 weeks for repeat TSH in order to verify that her levothyroxine is being titrated appropriately. Job ID: [id number]
[2019-12-04] MEDS ORDERED: Lisinopril 20 MG TAB PO SCH (09:00)
== END 2019-12-03 16:40 | disposition home or self-care (01) | DRG 854 ==
LOC: ERS 18:45 → T4-B 20:41 → OBSVTOIN 20:41 → 2SW 11-28 20:56 → T4-A 11-29 19:24
PROVIDERS: ADMIT Emergency Medicine; ATTEND Emergency Medicine
PROC: 0Y6N0ZB Detachment at Left Foot, Partial 2nd Ray, Open Approach (ICD-10-PCS; principal; 2019-11-25)
PROC: 0Y6N0ZC Detachment at Left Foot, Partial 3rd Ray, Open Approach (ICD-10-PCS; 2019-11-25)
PROC: 0Y6N0ZD Detachment at Left Foot, Partial 4th Ray, Open Approach (ICD-10-PCS; 2019-11-25)
PROC: 0FT44ZZ Resection of Gallbladder, Percutaneous Endoscopic Approach (ICD-10-PCS; 2019-11-25)
PROC: 3E0234Z Introduction of Serum, Toxoid and Vaccine into Muscle, Percutaneous Approach (ICD-10-PCS; 2019-11-25)
PROC: 0HCNXZZ Extirpation of Matter from Left Foot Skin, External Approach (ICD-10-PCS; 2019-11-25)
DX: A41.51 Sepsis due to Escherichia coli [E. coli] (principal); K80.66 Calculus of gallbladder and bile duct with acute and chronic cholecystitis without obstruction; N17.9 Acute kidney failure, unspecified; I96 Gangrene, not elsewhere classified; Z68.41 Body mass index [BMI] 40.0-44.9, adult; E11.52 Type 2 diabetes mellitus with diabetic peripheral angiopathy with gangrene; Z20.828 Contact with and (suspected) exposure to other viral communicable diseases; Z79.890 Hormone replacement therapy; A41.59 Other Gram-negative sepsis; N18.3 Chronic kidney disease, stage 3 (moderate); E03.9 Hypothyroidism, unspecified; E78.5 Hyperlipidemia, unspecified; E11.22 Type 2 diabetes mellitus with diabetic chronic kidney disease; K21.9 Gastro-esophageal reflux disease without esophagitis; I12.9 Hypertensive chronic kidney disease with stage 1 through stage 4 chronic kidney disease, or unspecified chronic kidney disease; E11.40 Type 2 diabetes mellitus with diabetic neuropathy, unspecified; E78.00 Pure hypercholesterolemia, unspecified; F41.1 Generalized anxiety disorder; E11.65 Type 2 diabetes mellitus with hyperglycemia; E11.628 Type 2 diabetes mellitus with other skin complications; E66.01 Morbid (severe) obesity due to excess calories; W25.XXXA Contact with sharp glass, initial encounter; E88.81 Metabolic syndrome and other insulin resistance; S91.145A Puncture wound with foreign body of left lesser toe(s) without damage to nail, initial encounter; D63.1 Anemia in chronic kidney disease; R05 Cough; L03.032 Cellulitis of left toe; R14.0 Abdominal distension (gaseous); Z79.899 Other long term (current) drug therapy; Z79.4 Long term (current) use of insulin; Z23 Encounter for immunization; Z90.710 Acquired absence of both cervix and uterus; Z90.722 Acquired absence of ovaries, bilateral; Z98.42 Cataract extraction status, left eye; Z98.41 Cataract extraction status, right eye
CPT/HCPCS: 36415; 36416; 71045; 76705; 80048; 80053; 80202; 81003; 81015; 82607; 82728; 82746; 83036; 83540; 83550; 83605; 84443; 85025; 85652; 86140; 87040; 87070; 87077; 87086; 87186; 87205; 87635; 88304; 88305; 88311; 90471; 90715; 90732; 93005; 96365; 96367; G0009; J0692; J1100; J1650; J1815; J2001; J2405; J2704; J3010; J3370; J3490; J7030; J7050; Q0162; S0020; U0003

== ENCOUNTER 2020-11-29 10:25 | Emergency (ER) | payer SELFPAY ==
[~2020-11-29 10:25] MED LIST changes: -ISOVUE-370 76%-LOCM 1 ML ONE; +Iopamidol-370 76% 500 ML 1 ML ONE
[2020-11-29 12:15] LABS: #Eosinphils 0.4 thou/uL (0.0-0.7); #Lymphocytes 1.9 thou/uL (1.20-3.40); #Monocytes 0.7 thou/uL (0.11-0.59); #Neutrophils 4.3 thou/uL (1.40-6.50); %Basophils 0.3 % (0.0-1.0); %Eosinophils 5.9 % (0.0-10.0); %Lymphocytes 25.7 % (21.0-51.0); %Monocytes 9.7 % (0.0-10.0); %Neutrophils 58.4 % (42.0-75.0); Hemoglobin 11.6 g/dL (12.0-16.0); Mean Corpuscular HGB CONC 35.6 g/dL (32.0-36.0); Mean Corpuscular Hemoglobin 33.6 pg (27.0-31.0); Mean Corpuscular Volume 94.3 fL (78.0-98.0); Mean Platelet Volume 8.9 fL (7.4-10.4); Platelet Count 219 thou/uL (130-400); RBC Distribution Width 11.2 % (11.5-14.5); Red Blood Cell (RBC) Count 3.47 mill/uL (4.20-5.40); White Blood Cell (WBC) Count 7.4 thou/uL (4.8-10.8)
[2020-11-29 12:39] LABS: ALT (SGPT) 32 U/L (8-55); AST (SGOT) 29 U/L (5-34); Albumin 3.8 g/dL (3.4-4.8); Alkaline Phosphatase 152 U/L (40-110); Anion Gap 14 mmol/L (10-20); BUN (Urea Nitrogen) 25 mg/dL (9.8-20.1); Bilirubin, Total 0.5 mg/dL (0.2-1.2); Calc. Creatinine Clearance 0 mL/min (70-130); Calcium 10.1 mg/dL (7.8-10.44); Carbon Dioxide 22 mmol/L (23-31); Chloride 106 mmol/L (98-107); Globulin 3.8 g/dL (2.4-3.5); Glucose 251 mg/dL (80-115); Potassium 5.3 mmol/L (3.5-5.1); Protein, Total 7.6 g/dL (5.8-8.1); Sodium 137 mmol/L (136-145)
[2020-11-29 13:11] LABS: Bilirubin Negative (Negative); Blood, Urine Trace (Negative); Glucose, Urine (Dipstick) Negative (Negative); Ketone, Urine Negative (Negative); Leukocyte Negative (Negative); Nitrite Negative (Negative); Protein, Urine (Dipstick) Trace mg/dL (Neg-Trace); Specific Gravity, Urine 1.025 (1.005-1.030); Urobilinogen 0.2 mg/dL (Less than 2)
[2020-11-29 13:13] LABS: RBC/HPF 0-3 HPF (0-3); Squamous Epithelial 0-3 HPF (0-3); WBC/HPF 0-3 HPF (0-3)
[2020-11-29 13:14] LABS: Clarity Clear (Clear)
[2020-11-29 13:28] LABS: Bacteria/HPF 1+ HPF (None Seen)
[2020-11-29] MEDS ORDERED: Ketorolac Tromethamine 30 MG/ML VIAL ONE (15:19)
== END 2020-11-29 16:55 | disposition home or self-care (01) ==
LOC: ERS 10:25
DX: R10.11 Right upper quadrant pain (principal); E78.5 Hyperlipidemia, unspecified; E78.00 Pure hypercholesterolemia, unspecified; E11.9 Type 2 diabetes mellitus without complications; E03.9 Hypothyroidism, unspecified; I10 Essential (primary) hypertension; Z79.4 Long term (current) use of insulin; Z79.899 Other long term (current) drug therapy
CPT/HCPCS: 36415; 74177; 80053; 81003; 83690; 85025; 96374; J1885; Q9967

== ENCOUNTER 2020-12-13 23:05 | Emergency (ER) | payer SELFPAY | END 2020-12-13 23:14 | disposition left against medical advice (07) | LOC: ERS 23:05 | DX: Z53.21 Procedure and treatment not carried out due to patient leaving prior to being seen by health care provider (principal) | CPT/HCPCS: 36416 ==

== ENCOUNTER 2021-01-23 12:17 | Emergency (ER) | payer SELFPAY ==
[2021-01-23 12:51] LABS: #Eosinphils 0.2 thou/uL (0.0-0.7); #Lymphocytes 1.6 thou/uL (1.20-3.40); #Monocytes 0.6 thou/uL (0.11-0.59); %Basophils 0.5 % (0.0-1.0); %Eosinophils 2.5 % (0.0-10.0); %Lymphocytes 21.3 % (21.0-51.0); %Monocytes 8.3 % (0.0-10.0); %Neutrophils 67.4 % (42.0-75.0); Hemoglobin 12.3 g/dL (12.0-16.0); Mean Corpuscular HGB CONC 34.8 g/dL (32.0-36.0); Mean Corpuscular Hemoglobin 33.1 pg (27.0-31.0); Mean Corpuscular Volume 94.9 fL (78.0-98.0); Mean Platelet Volume 9.2 fL (7.4-10.4); Platelet Count 204 thou/uL (130-400); RBC Distribution Width 10.9 % (11.5-14.5); Red Blood Cell (RBC) Count 3.72 mill/uL (4.20-5.40); White Blood Cell (WBC) Count 7.4 thou/uL (4.8-10.8)
[2021-01-23 13:14] LABS: ALT (SGPT) 17 U/L (8-55); AST (SGOT) 16 U/L (5-34); Albumin 3.8 g/dL (3.4-4.8); Alkaline Phosphatase 106 U/L (40-110); Anion Gap 14 mmol/L (10-20); BUN (Urea Nitrogen) 20 mg/dL (9.8-20.1); Bilirubin, Total 0.6 mg/dL (0.2-1.2); CK (CPK) 108 U/L (29-168); Calc. Creatinine Clearance 0 mL/min (70-130); Calcium 9.3 mg/dL (7.8-10.44); Carbon Dioxide 20 mmol/L (23-31); Chloride 108 mmol/L (98-107); Globulin 3.6 g/dL (2.4-3.5); Glucose 216 mg/dL (80-115); Lipase 17 U/L (8-78); Potassium 4.7 mmol/L (3.5-5.1); Protein, Total 7.4 g/dL (5.8-8.1); Sodium 137 mmol/L (136-145)
[2021-01-23] MEDS ORDERED: Nitroglycerin 2% Ointment 1 INCH/1 GM Packet ONE (13:25)
[2021-01-23] MEDS ORDERED: Aspirin Chewable 81 MG TAB ONE (13:25)
[2021-01-23 13:35] LABS: CKMB 5.9 ng/mL (0-6.6)
[2021-01-23 13:43] LABS: Magnesium 1.9 mg/dL (1.6-2.6)
[2021-01-23 14:21] LABS: SARS-CoV-2 NAA Rapid Test Not Detected (NotDetected)
[2021-01-23 14:53] LABS: Bilirubin Negative (Negative); Blood, Urine Negative (Negative); Clarity Clear (Clear); Glucose, Urine (Dipstick) Normal (Negative); Ketone, Urine Negative (Negative); Leukocyte Negative Leu/uL (Negative); Nitrite Negative (Negative); Protein, Urine (Dipstick) 20 mg/dL (Neg-Trace); Specific Gravity, Urine 1.014 (1.002-1.036); Urobilinogen Normal mg/dL (Less than 2); pH, Urine 5.5 (5.0-9.0)
== END 2021-01-23 17:04 | disposition short-term general hospital (02) ==
LOC: ERS 12:17
DX: R07.89 Other chest pain (principal); R79.89 Other specified abnormal findings of blood chemistry; R60.0 Localized edema; Z20.822 Contact with and (suspected) exposure to COVID-19; E11.9 Type 2 diabetes mellitus without complications; E03.9 Hypothyroidism, unspecified; E78.00 Pure hypercholesterolemia, unspecified; I10 Essential (primary) hypertension; Z79.4 Long term (current) use of insulin; Z79.899 Other long term (current) drug therapy
CPT/HCPCS: 0240U; 36415; 71045; 80053; 81003; 82550; 82553; 83690; 83735; 83880; 84439; 84443; 84484; 85025; 85379; 93005; 94760